=== PATIENT | male | born 1940 | race Caucasian/White ===

== ENCOUNTER 2016-08-28 21:41 | Inpatient (IN) | payer OTHER ==
[2016-08-28] MEDS ORDERED: NS 1,000 ML IV ONE (22:31)
[2016-08-28] MEDS ORDERED: DUONEB (A & A) INH ONE (22:34)
[2016-08-28 22:35] LABS: BASO% 0.1 % (0.0-0.8); EOS# 0.02 X1000 (0.0-0.7); EOS% 0.1 % (0.0-10.0); HEMOGLOBIN 11.3 g/dL (14.0-18.0); IMM GRAN# 0.11 X1000 (0.0-0.04); IMM GRAN% 0.5 % (0.0-0.5); LYMPH# 0.84 X1000 (1.2-3.4); LYMPH% 3.5 % (20.5-51.1); MANUAL DIFF NEEDED? NO; MCH 24.8 PG (27-31); MCV 85.7 FL (81-99); MONO# 0.62 X1000 (0.11-0.59); MONO% 2.6 % (1.7-9.3); MPV 10.2 FL (7.4-10.4); NEUT% 93.2 % (42.2-75.2); PLT 346 X1000 (130-400); RBC 4.55 XMIL (4.7-6.1)
[2016-08-28 22:40] LABS: CALCIUM 9.1 mg/dL (8.8-10.2); MAGNESIUM 2.1 mg/dL (1.5-2.7); POTASSIUM 4.6 mmol/L (3.5-5.1); TOTAL BILIRUBIN 0.58 mg/dL (0.20-1.00); TOTAL PROTEIN 6.9 g/dL (6.3-8.3)
[2016-08-28 22:42] LABS: INR 1.14; PROTIME 12.1 Seconds (9.2-11.7); PTT 30.9 Seconds (22.0-36.0)
[2016-08-28] MEDS ORDERED: DUONEB (A & A) ONE (22:49)
[2016-08-28] MEDS ORDERED: VANCOMYCIN 1 GM/NS 250 ML IV ONE (22:55)
[2016-08-28] MEDS ORDERED: ROCEPHIN 1 GM/NS 50 ML IV ONE (22:55)
[2016-08-28] MEDS ORDERED: MERREM 1 GM in NS 50 ML IV ONE (22:56)
--- NOTE | 2016-08-28 23:22 | PROVIDER DOCUMENTATION ---
Addendum entered and electronically signed by Melinda Hernandez Scribe 08/29/16 00: 55: EKG Interpretation - EKG Time of EKG reading by physician:: 21:50 EKG Read and Signed by:: Emmanuel Pineda EKG Interpretation (*Must complete 3 of following elements*): Abnormal Rate: 106 Rhythm: atrial fibrillation with RVR QRS: RBB Original Note: HPI-General Adult - General Chief Complaint: Possible Sepsis-D Stated Complaint: SOB, CANNOT URINATE Time Seen by Provider: 08/28/16 22:31 Source: patient Allergies/Adverse Reactions: Patient Allergies Allergy/AdvReac Type Severity Reaction Status Date / Time No Known Allergies Allergy Verified 08/28/16 23:35 Home Medications: Home Medication List Medication Instructions Recorded Confirmed Last Taken Type Donepezil [Aricept] 10 mg PO QHS 02/21/14 08/28/16 03/07/15 21:00 History PRAVAstatin [Pravachol] 80 mg PO QHS 02/21/14 08/28/16 03/07/15 21:00 History Amlodipine [Norvasc] 10 mg PO DAILY 08/05/16 08/28/16 Unknown History Carvedilol [Coreg] 25 mg PO BID 08/05/16 08/28/16 Unknown History Omeprazole 40 mg PO DAILY 08/05/16 08/28/16 Unknown History Hydrocodone/Acetaminophen [[place] 1 each PO TID PRN #10 tablet 08/21/16 08/28/16 Unknown Rx 7.5-325 Tablet] Oxybutynin [Ditropan] 5 mg PO TID PRN #20 tablet 08/21/16 08/28/16 Unknown Rx Aspirin 81 mg PO DAILY #0 08/25/16 08/28/16 08/09/16 Rx Ciprofloxacin [Cipro] 250 mg PO BID #6 tablet 08/25/16 08/28/16 Unknown Rx Rivaroxaban [Xarelto] 20 mg PO DAILY #0 08/25/16 08/28/16 08/09/16 Rx - History of Present Illness -Gen Adult Nature of Presenting Problems: Pt. is 75 yom that presents with c/o SOB and trouble urinating. Pt. reports one week ago he had his prostate removed. Pt. states that his last BM was yesterday and it was a good one. Pt. reports his surgery was done by Dr. Downing. Pt. reports his abd is swelling with pain and that it radiates into his right shoulder. Pt. denies any N/V but does report when he woke this morning he broke into a sweat. Location of Pain/Injury: reports: abdomen. denies: head, face, mouth, neck, chest, upper extremity, hand(s), back, pelvis, genitalia, lower extremity, feet , upper body, lower body, generalized Pain Radiation: reports: shoulder(s) (Right) Quality of Pain: reports: aching. denies: burning, cramping, dull, fullness, indigestion, pressure, sharp, stabbing, tearing, throbbing, tightness Severity: reports: severe. denies: mild, moderate Onset/Duration: reports: gradual, 2 days ago Timing: reports: still present, constant, changing over time, getting worse. denies: improving, gone now, resolved prior to arrival, intermittent Context/Activities at Onset: reports: none. denies: recent emotional stress, recent physical stress, recent trauma history, possible bad food, cold exposure , out of country travel Modifying Factors: improves with: nothing Associated Symptoms: reports: diaphoresis, genitourinary problems, shortness of breath. denies: anxiety, arm pain, back/neck pain, chest pain, constipation, cough, diarrhea, dizziness, EENT symptoms, fatigue, fever/chills, headaches, heartburn, joint pain, loss of appetite, malaise, muscle aches, sinus congestion /drainage, nausea, rash, seizure, sensory/motor loss, pain with inspiration, swelling/mass in abdomen, syncope, vomiting, weakness, trouble walking Similar Symptoms Previously?: Yes Recently seen or treated by another doctor?: No Review of Systems - Adult - REVIEW OF SYSTEMS - ADULT Constitutional: reports: see HPI. denies: chills, fever, fatique Eyes: reports: see HPI. denies: discharge, blurred vision, double vision Ears, Nose, Mouth & Throat: reports: see HPI. denies: ear pain, hearing loss, nose pain, loose teeth, mouth/dental pain, throat pain, throat swelling Cardiovascular: reports: see HPI. denies: chest pain, irregular heart rate, orthopnea, syncope Respiratory: reports: see HPI, dyspnea on exertion, shortness of breath, wheezing. denies: chronic cough, cough, pleurisy Gastrointestinal: reports: see HPI, abdominal pain. denies: difficulty swallowing, frequent heartburn, nausea, vomiting Genitourinary: reports: see HPI, urinary retention. denies: dysuria, discharge , flank pain, hematuria, hesitency Musculoskeletal: reports: see HPI. denies: bone pain, back pain, joint pain, joint swelling, muscle aches, neck pain Integumentary: reports: see HPI. denies: hives, hair loss, itching, rash, skin thickening Neurological: reports: see HPI. denies: ataxia, headache/migraines, numbness, seizure, tremors Psychiatric: reports: see HPI. denies: anxiety, depression, emotional problems , insomnia, panic attacks, suicidal thoughts Past History - Adult - PAST MEDICAL HISTORY-ADULT Review of Records: reports: Old Records Reviewed, Nursing Assessment Review, Medications Reviewed, Social history reviewed & non-contributory. Cardiovascular: reports: HTN Respiratory: reports: asthma - PRIOR SURGERIES/PROCEDURES Surgical/Procedure History: reports: bowel surgery (colectomy) - IMMUNIZATION STATUS Childhood Immunizations: See Nurse Assessment Flu Vaccine: See Nurse Assessment - FAMILY HISTORY Family History: reviewed, not pertinent - SOCIAL HISTORY Smoking: denies Physical Exam-General - PHYSICAL EXAM-ADULT Initial Vital Signs Reviewed: Yes - CONSTITUTIONAL General Appearance: alert, moderate distress, obese. negative: anxious, lethargic, slow to respond, obtunded, combative - EYES Eyes: PERRL/EOMI, pink conjunctivae. negative: conjuctival exudate, scleral icterus, subconjunctival hemorrhage - HEAD, EARS, NOSE, MOUTH & THROAT HENMT: normocephalic/atraumatic, moist mucous membranes. negative: angioedema, frontal tenderness, maxillary tenderness - NECK Neck: non-tender, full range of motion, supple, normal inspection. negative: lymphadenopathy, trachial deviation, thyromegaly - RESPIRATORY Respiratory: respiratory distress, wheezing, increased rate. negative: crackles , rales, rhonchi, stridor, plerual rub, retractions, splinting - CARDIOVASCULAR Cardiovascular: regular rate, rhythm, no edema, tachycardia. negative: extra beats, friction rub, irregularly irregular - CHEST (BREASTS) Chest/Breast: deferred - GASTROINTESTINAL (ABDOMEN) Abdominal Exam: normal bowel sounds, non tender, soft. negative: distended, guarding, rigid, rebound, tenderness, hernia, mass - GENITOURINARY Male Genitalia: deferred Rectal Exam: deferred Hemoccult Exam: deferred - LYMPHATIC Lymphatic: no adenopathy. negative: axilla node tender, cervical node tenderness - MUSCULOSKELETAL Back Exam: normal inspection, no CVA tenderness, no vertebral tenderness. negative: ecchymosis, swelling, vertebral tenderness Extremity: normal range of motion, non-tender, normal gait, pedal edema. negative: deformity, erythema, inflammation Peripheral Pulses: radial (R): 2+, radial (L): 2+ - SKIN Integumentary: normal turgor, warm/dry, ecchymosis (Various stages of healing on the abdomen where his surgery was performed.), pallor. negative: cyanosis, diaphoresis, erythema, jaundice, mottled, petechiae, purpura, rash, swelling, tenderness - NEUROLOGIC Neurologic: grossly normal, no motor/sensory deficits. negative: aphasia, facial droop, focal weakness, motor weakness, sensory deficit - PSYCHIATRIC Psych/Mental Status: normal mood/affect, normal thought content, normal thought process, oriented x 3. negative: anxious, paranoid, tearful Progress - PLAN OF CARE/RESULTS Progress/Plan/Lab Results: Dr. Pineda at bedside for evaluation. Discussed results and plan of care with patient. Patient agrees with plan and verbalizes understanding. Vital Signs Temp Pulse Resp BP Pulse Ox 08/28/16 22:16 112 H 31 H 79/50 92 L 08/28/16 21:44 98.1 F 85 20 120/56 86 L No Known Allergies Allergy (Verified 08/19/16 12:15) Donepezil [Aricept] 10 mg PO QHS 02/21/14 PRAVAstatin [Pravachol] 80 mg PO QHS 02/21/14 Amlodipine [Norvasc] 10 mg PO DAILY 08/05/16 Carvedilol [Coreg] 25 mg PO BID 08/05/16 Omeprazole 40 mg PO DAILY 08/05/16 Hydrocodone/Acetaminophen [[place] 7.5-325 Tablet] 1 each PO TID PRN #10 tablet Oxybutynin [Ditropan] 5 mg PO TID PRN #20 tablet 08/21/16 Aspirin 81 mg PO DAILY #0 08/25/16 Ciprofloxacin [Cipro] 250 mg PO BID #6 tablet 08/25/16 Rivaroxaban [Xarelto] 20 mg PO DAILY #0 08/25/16 Laboratory 08/28/16 08/28/16 08/28/16 23:00 22:10 22:10 WBC RBC Hgb Hct MCV MCH MCHC RDW Std Deviation Plt Count MPV Immature Gran % (Auto) Neut % (Auto) Lymph % (Auto) Summers % (Auto) Eos % (Auto) Baso % (Auto) Immature Gran # (Auto) Neut # (Auto) Lymph # (Auto) Summers # (Auto) Eos # (Auto) Baso # (Auto) PT 12.1 H INR 1.14 PTT (Actin FS) 30.9 D-Dimer Sodium Potassium Chloride Carbon Dioxide Anion Gap BUN Creatinine Estimated GFR/1.73 m2 BUN/Creatinine Ratio Glucose Calculated Osmolality Calcium Magnesium Total Bilirubin AST ALT Alkaline Phosphatase Creatine Kinase Troponin T < 0.010 Div-U-Ovqfbpkyswy Pept Total Protein Albumin Globulin Albumin/Globulin Ratio Plasma Lactate 1.6 08/28/16 08/28/16 08/28/16 22:10 22:10 22:10 WBC RBC Hgb Hct MCV MCH MCHC RDW Std Deviation Plt Count MPV Immature Gran % (Auto) Neut % (Auto) Lymph % (Auto) Summers % (Auto) Eos % (Auto) Baso % (Auto) Immature Gran # (Auto) Neut # (Auto) Lymph # (Auto) Summers # (Auto) Eos # (Auto) Baso # (Auto) PT INR PTT (Actin FS) D-Dimer 6.61 H Sodium 137 Potassium 4.6 Chloride 95 L Carbon Dioxide 28 Anion Gap 14 BUN 42 H Creatinine 2.2 H Estimated GFR/1.73 m2 29 BUN/Creatinine Ratio 19 Glucose 143 H Calculated Osmolality 287 Calcium 9.1 Magnesium 2.1 Total Bilirubin 0.58 AST 22 ALT 10 Alkaline Phosphatase 52 Creatine Kinase 158 Troponin T Deb-B-Kfyxrhuomxt Pept 3034 H Total Protein 6.9 Albumin 3.0 L Globulin 3.9 Albumin/Globulin Ratio 0.8 Plasma Lactate 08/28/16 22:10 WBC 24.29 H RBC 4.55 L Hgb 11.3 L Hct 39.0 L MCV 85.7 MCH 24.8 L MCHC 29.0 L RDW Std Deviation 19.2 H Plt Count 346 MPV 10.2 Immature Gran % (Auto) 0.5 Neut % (Auto) 93.2 H Lymph % (Auto) 3.5 L Summers % (Auto) 2.6 Eos % (Auto) 0.1 Baso % (Auto) 0.1 Immature Gran # (Auto) 0.11 H Neut # (Auto) 22.68 H Lymph # (Auto) 0.84 L Summers # (Auto) 0.62 H Eos # (Auto) 0.02 Baso # (Auto) 0.02 PT INR PTT (Actin FS) D-Dimer Sodium Potassium Chloride Carbon Dioxide Anion Gap BUN Creatinine Estimated GFR/1.73 m2 BUN/Creatinine Ratio Glucose Calculated Osmolality Calcium Magnesium Total Bilirubin AST ALT Alkaline Phosphatase Creatine Kinase Troponin T Xzq-X-Bgljwixopqs Pept Total Protein Albumin Globulin Albumin/Globulin Ratio Plasma Lactate Orders Category Date Time Status Cardiac Monitoring DIRECTED Care 08/28/16 21:57 Active Riavs Cath Insertion ORDERED Care 08/28/16 22:54 Active Notify MD of + Sepsis Screen NOW Care 08/28/16 22:51 Active Saline Loc NOW Care 08/28/16 21:57 Active ABDOMEN FLAT/UPRIGHT [RAD] Stat Exams 08/28/16 22:54 Ordered CHEST-PORTABLE [RAD] Stat Exams 08/28/16 21:59 Taken BLOOD CULTURE [BLDCUL] Stat Lab 08/28/16 23:00 Received CBC WITH ELECTRONIC DIFF [HEME] Stat Lab 08/28/16 22:10 Completed CK PROFILE [SP CHEM] Stat Lab 08/28/16 22:10 Completed COMPREHENSIVE METABOLIC PANEL [CHEM] Stat Lab 08/28/16 22:10 Completed D-DIMER [CHEM] Stat Lab 08/28/16 22:10 Completed LACTATE, PLASMA [CHEM] Stat Lab 08/28/16 23:00 Completed MAGNESIUM [CHEM] Stat Lab 08/28/16 22:10 Completed PRO B-NATRIURETIC PEPTIDE Stat Lab 08/28/16 22:10 Completed PROTIME WITH INR [COAG] Stat Lab 08/28/16 22:10 Completed PTT [COAG] Stat Lab 08/28/16 22:10 Completed TROPONIN T Stat Lab 08/28/16 22:10 Completed 0.9% Sodium Chloride Inj [Ns] 1,000 ml Med 08/28/16 22:31 Active IV 999 mls/hr Albuterol 2.5MG/Ipratrop 0.5MG [Duoneb (A & A)] Med 08/28/16 22:49 Discontinued 3 ml .ROUTE .STK-MED ONE Albuterol 2.5MG/Ipratrop 0.5MG [Duoneb (A & A)] Med 08/28/16 22:34 Discontinued 6 ml INH NOW ONE CefTRIAXONE 1 GM/NS [Rocephin 1 gm/Ns] 50 ml Med 08/28/16 22:55 Discontinued IV NOW Meropenem [Merrem] 1 gm Med 08/28/16 22:56 Discontinued 0.9% Sodium Chloride Inj [Ns] 50 ml IV NOW Vancomycin 1 gm/Ns 250 ml Med 08/28/16 22:55 Active IV NOW Aerosol Treatments Routine Oth 08/28/16 22:34 Active Aerosol Treatments Stat Oth 08/28/16 22:34 Active EKG [EKG] Stat Ther 08/28/16 21:43 Ordered Laboratory Tests 08/28/16 08/28/16 08/28/16 22:10 22:10 22:10 WBC 24.29 H RBC 4.55 L Hgb 11.3 L Hct 39.0 L MCV 85.7 MCH 24.8 L MCHC 29.0 L RDW Std Deviation 19.2 H Plt Count 346 MPV 10.2 Immature Gran % (Auto) 0.5 Neut % (Auto) 93.2 H Lymph % (Auto) 3.5 L Summers % (Auto) 2.6 Eos % (Auto) 0.1 Baso % (Auto) 0.1 Immature Gran # (Auto) 0.11 H Neut # (Auto) 22.68 H Lymph # (Auto) 0.84 L Summers # (Auto) 0.62 H Eos # (Auto) 0.02 Baso # (Auto) 0.02 PT INR PTT (Actin FS) D-Dimer 6.61 H Sodium 137 Potassium 4.6 Chloride 95 L Carbon Dioxide 28 Anion Gap 14 BUN 42 H Creatinine 2.2 H Estimated GFR/1.73 m2 29 BUN/Creatinine Ratio 19 Glucose 143 H Calculated Osmolality 287 Calcium 9.1 Magnesium 2.1 Total Bilirubin 0.58 AST 22 ALT 10 Alkaline Phosphatase 52 Creatine Kinase 158 Troponin T Yyw-J-Aivpijgiuzy Pept Total Protein 6.9 Albumin 3.0 L Globulin 3.9 Albumin/Globulin Ratio 0.8 Plasma Lactate 08/28/16 08/28/16 08/28/16 22:10 22:10 22:10 WBC RBC Hgb Hct MCV MCH MCHC RDW Std Deviation Plt Count MPV Immature Gran % (Auto) Neut % (Auto) Lymph % (Auto) Summers % (Auto) Eos % (Auto) Baso % (Auto) Immature Gran # (Auto) Neut # (Auto) Lymph # (Auto) Summers # (Auto) Eos # (Auto) Baso # (Auto) PT 12.1 H INR 1.14 PTT (Actin FS) 30.9 D-Dimer Sodium Potassium Chloride Carbon Dioxide Anion Gap BUN Creatinine Estimated GFR/1.73 m2 BUN/Creatinine Ratio Glucose Calculated Osmolality Calcium Magnesium Total Bilirubin AST ALT Alkaline Phosphatase Creatine Kinase Troponin T < 0.010 Vhm-S-Xdcpdvyvqec Pept 3034 H Total Protein Albumin Globulin Albumin/Globulin Ratio Plasma Lactate 08/28/16 23:00 WBC RBC Hgb Hct MCV MCH MCHC RDW Std Deviation Plt Count MPV Immature Gran % (Auto) Neut % (Auto) Lymph % (Auto) Summers % (Auto) Eos % (Auto) Baso % (Auto) Immature Gran # (Auto) Neut # (Auto) Lymph # (Auto) Summers # (Auto) Eos # (Auto) Baso # (Auto) PT INR PTT (Actin FS) D-Dimer Sodium Potassium Chloride Carbon Dioxide Anion Gap BUN Creatinine Estimated GFR/1.73 m2 BUN/Creatinine Ratio Glucose Calculated Osmolality Calcium Magnesium Total Bilirubin AST ALT Alkaline Phosphatase Creatine Kinase Troponin T Iwg-L-Ypxkpevxpvy Pept Total Protein Albumin Globulin Albumin/Globulin Ratio Plasma Lactate 1.6 Dr. Pineda wants to be conservative with fluids due to wheezing and elevated BNP. - XRAY 1 XRAY Study: Chest XRAY Interpretation: LLL Pneumonia ([place]) 2 XRAY Study: Abdomen XRAY Interpretation: Distended bowel loops and thickend bowel dill ([place]) - CONSULTS/PCP/HOSPITALIST Notification #1 *Consult/PCP/Hospitalist*: Dr. Roman Time Discussed: 00:06 Reason/Comments: Admission Consult Disposition: Will see in ED, Admit Departure - Departure Time of Disposition Order: 23:28 DIAGNOSIS: Pneumonia Qualifiers: Pneumonia type: due to unspecified organism Laterality: left Lung location: lower lobe of lung Qualified Code(s): J18.1 - Lobar pneumonia, unspecified organism Sepsis Qualifiers: Sepsis type: sepsis due to unspecified organism Qualified Code(s): A41.9 - Sepsis, unspecified organism Disposition: ADMITTED INPATIENT 09 Certified Medical Emergency: Emergent Condition: Serious Referrals: Afia Ovalles MD [Primary Care Provider] - Attestation - Physician/ JEROME Attestation Patient care was provided by Advanced Practice Provider:: Yes Advanced Practice Provider:: Rory Newton Advanced Practice Provider documentation review:: The Mid-level provider documentation, treatment plan and medical decision making was reviewed by the physician who agrees with all treatment and medical decision making by the MLP. The physician spent face to face time with patient:: Yes
[2016-08-29] MEDS ORDERED: NS 1,000 ML IV ONE (00:08)
[2016-08-29 00:32] LABS: URINE SOURCE CATH
[2016-08-29 00:43] LABS: BILIRUBIN URINE SMALL (NEGATIVE); BLOOD URINE LARGE (NEGATIVE); CLARITY CLEAR (CLEAR); COLOR YELLOW; GLUCOSE URINE NEGATIVE (NEGATIVE); LEUKOCYTES URINE TRACE (NEGATIVE); NITRITE URINE NEGATIVE (NEGATIVE); PROTEIN URINE 30 mg/dL (NEGATIVE); SP GRAVITY URINE >= 1.030; UROBILINOGEN URINE 0.2 EU/dL (0.2-1.0)
[2016-08-29 00:44] LABS: URINE CULTURE NEEDED? YES; URINE EPITHELIAL CELLS >10 /HPF (<10); URINE RBC TNTC /HPF (<10); URINE WBC TNTC /HPF (<10)
--- NOTE | 2016-08-29 04:41 | HISTORY AND PHYSICAL ---
CHIEF COMPLAINT: Shortness of breath. HISTORY OF PRESENTING ILLNESS: This is a 75-year-old male with a history of hypertension, hyperlipidemia, and atrial fibrillation, who underwent a recent prostatectomy about a week ago. He presents to the emergency department complaining of having shortness of breath for the past several days. He states that he was coughing and had some chills. He was seen in the emergency room here and had imaging done, which did show that he had a left lower lobe infiltrate. Due to his presenting symptoms, he would need hospitalization for further management. During his initial evaluation in the ER, he was also hypotensive and he was given IV fluids. His blood pressure seemed to somewhat improve. At the time of my examination, he had denied having any headache, nausea, vomiting, diarrhea, chest pain, hemoptysis, melena, any weight changes, complaint shortness of breath, and not feeling well. PAST MEDICAL HISTORY: Includes hypertension, hyperlipidemia, and atrial fibrillation. PAST SURGICAL HISTORY: Prostatectomy, colectomy, bilateral knee replacement, appendectomy, and left carotid endarterectomy. ALLERGIES: No known drug allergies. CURRENT MEDICATIONS: Listed in MAR. SOCIAL HISTORY: He denies any history of smoking, alcohol, or illicit drug use. FAMILY HISTORY: No history of coronary disease. REVIEW OF SYSTEMS: Twelve point review of systems as in history of present illness. Other systems negative. PHYSICAL EXAMINATION: GENERAL: Cooperative, friendly male. He is resting more comfortably now. VITAL SIGNS: Temperature 98.1 degrees, pulse 85, respirations 20, blood pressure 120/56, saturating at 86%. HEENT: Atraumatic, normocephalic. Extraocular movements intact. Pupils equal, round, and reactive to light and accommodation. NECK: No masses. CHEST: Bibasilar rales. CARDIOVASCULAR: Regular rate and rhythm. ABDOMEN: Soft. Positive bowel sounds. EXTREMITIES: +1 edema. NEURO: He is awake, alert, oriented x3. GENITOURINARY: No bladder distention. SKIN: Warm. LABORATORIES AND STUDIES: WBCs 24.29, hemoglobin 11.3, hematocrit 39.0, platelets 346,000. D- dimer 6.61. Sodium 137, potassium 4.6, chloride 95, CO2 28, BUN is 42, creatinine is 2.2, glucose 143. Pro-BNP is 3334. ASSESSMENT: This is a 75-year-old male with a history of hypertension, hyperlipidemia, and atrial fibrillation, who presented to the emergency department with worsening cough and shortness of breath for the past several days. He is found to have infiltrates on the left lower lobe/ also he was presenting with hypotension. He was given IV fluids. The patient will need hospitalization for further management. 1. Pneumonia. 2. Suspected sepsis. 3. Hypotension. 4. Atrial fibrillation. 5. Probable Congestive heart failure. 6. Increase in D-dimer probably secondary to recent surgery. 7. Chronic kidney disease. PLAN: 1. We will admit patient to ICU. 2. We will check blood cultures. Start patient on IV antibiotics. 3. Continue with IV fluid. If there is no improvement, will consider starting the patient on Levophed. 4. We will hold off on his anticoagulation for now and have Cardiology evaluate him for his congestive heart failure and atrial fibrillation. 5. We will consider V/Q scan if he is not improving. 6. Monitor renal function. 7. We will put the patient on deep venous thrombosis prophylaxis with SCD. 8. We will continue to follow and reassess.
--- NOTE | 2016-08-29 06:00 | EKG Report ---
Test Performed on : 08/28/2016 9:50:15 PM Test Reason : SOB Blood Pressure : / mmHG Vent. Rate : 106 BPM Atrial Rate : 101 BPM P-R Int : 000 ms QRS Dur : 144 ms QT Int : 366 ms P-R-T Axes : 000 135 033 degrees QTc Int : 486 ms Atrial fibrillation. with rapid ventricular response. Right bundle branch block Abnormal ECG When compared with ECG of 08-MAR-2015 14:37, Previous ECG has undetermined rhythm, needs review Unconfirmed Result
[2016-08-29] MEDS ORDERED: ROCEPHIN 1 GM/NS 50 ML IV SCH (08:18)
[2016-08-29] MEDS ORDERED: LEVAQUIN 750 MG/D5W 150 ML IV SCH (08:18)
--- NOTE | 2016-08-29 08:20 | Diag Imaging Result Document ---
PROCEDURE NAME: CHEST-PORTABLE - 08/28/2016 AP PORTABLE CHEST AT 2210 HOURS: FINDINGS: There is elevation of the left hemidiaphragm. There is cardiomegaly. There are no previous studies available for comparison. IMPRESSION: Possible atelectasis in the left base. Cardiomegaly.
--- NOTE | 2016-08-29 08:24 | Diag Imaging Result Document ---
PROCEDURE NAME: ABDOMEN FLAT/UPRIGHT - 08/28/2016 FLAT AND UPRIGHT ABDOMEN, PORTABLE: FINDINGS: There are markedly distended small bowel loops in the mid and left abdomen. The stomach is not particularly distended. There is a paucity of colonic gas. IMPRESSION: Small bowel obstruction.
[2016-08-29] MEDS: DUONEB (A & A) INH SCH ×4 (10:46→23:25)
--- NOTE | 2016-08-29 10:47 | CONSULTATION ---
DATE OF CONSULTATION: 08/29/2016 HISTORY: The patient is a 75-year-old gentleman who has chronic atrial fibrillation who also has had recent prostatectomy about a week back. He came to the emergency room with increasing shortness of breath associated with cough and mucopurulent expectoration with chills. For the last couple of days, he has noted increasing abdominal distention with significant abdominal discomfort. He does not complain of having nausea or vomiting; however, he has not had a bowel movement in the last couple of days. He denies chest pain. There is no orthopnea. There are no palpitations. There is no syncope. REVIEW OF SYSTEMS: A 14-point review of systems was done. GI System: As above. System: There is no dysuria. Central Nervous System: No focal weakness to suggest a CVA or TIA. Endocrine System stable. PAST MEDICAL AND SURGICAL HISTORY: 1. Hypertension. 2. Chronic atrial fibrillation. 3. Hyperlipidemia. 4. Status post carotid endarterectomy. 5. Peripheral vascular disease. 6. History of GI bleed on 03/08/2015. 7. Gastroesophageal reflux disease. 8. Colectomy. 9. Bilateral knee surgery. 10. Appendectomy. 11. Recent prostatectomy. ALLERGIES: He is not known to be allergic to any medications. HOME MEDICATIONS: 1. Pravastatin 80. 2. Aricept 10. 3. Amlodipine 10. 4. Omeprazole 40. 5. Coreg 25 b.i.d. 6. Xarelto 20. 7. Aspirin. 8. He was on ciprofloxacin. SOCIAL HISTORY: He does not smoke. There is no history of alcohol abuse. PHYSICAL EXAMINATION: Vital Signs: Blood pressure when he came to the hospital was 120/50. It is 94/70 at the present time. Cardiovascular System: Jugular venous pressure was normal. 1st and 2nd heart sounds were heard. There is no S3 gallop. Respiratory System: Bilateral expiratory wheeze. Abdomen: Distended. High-pitched tinkling bowel sounds were noted. Central nervous system: Alert and oriented and was moving all 4 extremities. Extremities: Examination of extremities revealed trace edema. HEENT: Atraumatic, normocephalic. Pupils were equal and reacting to light. LABORATORY EXAMINATION: WBC 24.29, hemoglobin 11.3, hematocrit 39, platelet 346 ,000. D-dimer 6.61. Sodium 137, potassium 4.6, sodium 95. BUN 42, creatinine 2.2. ASSESSMENT AND PLAN: Mr. Jose Manuel Thurston is a 75-year-old gentleman with history of hypertension, atrial fibrillation, hyperlipidemia. He recently underwent prostatectomy. He is admitted with increasing shortness of breath with chills, and mucoid-to- mucopurulent expectoration. In addition, the patient has noted significant abdominal discomfort with worsening distention recently. From a cardiac standpoint 1. He is in atrial fibrillation. He has had chronic atrial fibrillation. He is anticoagulated with Xarelto. We will decrease the dose of Xarelto given his worsening renal function.Prior creatinine was 1.0. Will consult nephrology 2. We will get an echocardiogram to assess cardiac and valvular function. 3. His main problems have been that he has had cough with mucopurulent expectoration. 4. Elevated white counts. Blood cultures are pending. 5. He has a respiratory tract infection as well. We will repeat chest x-ray in the morning. 6. He has abdominal discomfort with distention and chest x-ray and abdominal x- ray suggestive of small bowel obstruction. We will consult General Surgery as a combination of respiratory tract infection or small bowel obstruction may be the etiology of his symptomatology. In the interim, we will keep him n.p.o. until surgery sees him. 7. For infection, he is on antibiotics. Blood cultures are pending. 8. He has had a prostatectomy. He does not complain of any bleeding in his urine. 9. His blood pressures are low. His beta-blockers have been held. He is on IV fluids. Recommend continuing his current medications. Thank you for the consult. We will follow hospital course. [facility] MEDICAL CENTERJonah
[2016-08-29] MEDS: PRILOSEC PO SCH (11:21)
--- NOTE | 2016-08-29 13:32 | Diag Imaging Result Document ---
PROCEDURE NAME: ABDOMEN/PELVIS W/O CONTRAST - 08/29/2016 CT ABDOMEN AND PELVIS WITHOUT CONTRAST: No contrast administered per request of the referring provider. FINDINGS: There is distention of proximal small bowel up to 3.7 cm. The possibility of early or partial small bowel obstruction cannot be excluded. There is possible transition to normal caliber small bowel at the right lower quadrant. There is no specific obstructing lesion identified. There is no bowel-containing hernia identified. There is extensive diverticulosis on the left colon from the splenic flexure to the distal sigmoid. There is no diverticulitis identified. There appears to have been partial colectomy at the proximal right colon. The distal small bowel proximal to the right colon surgery is not dilated. There is a small amount of free fluid in the abdomen and pelvis. There is no free air identified. There is no abscess identified. There is dependent atelectasis of the bilateral lung bases. There are no substantial abnormalities of the liver, spleen, or pancreas, other than mild pancreatic atrophic changes, identified. There is nonspecific mild fullness of the bilateral adrenal glands. The gallbladder is surgically absent. There is no evidence of renal stone or hydronephrosis. There are low density lesions suggestive of cysts arising at the lower right kidney. There is a mildly prominent left common iliac lymph node. There are atherosclerotic calcifications noted. There are lumbar spine degenerative changes noted. There is a Rivas catheter in the urinary bladder. IMPRESSION: 1. Distended proximal small bowel with apparent transition to normal caliber at the right lower quadrant. The possibility of early or partial small bowel obstruction cannot be excluded. There is no discrete obstructing lesion identified. 2. Uncomplicated colonic diverticulosis. 3. Small amount of free fluid. No free air. No abscess. 4. Nonspecific mild fullness of bilateral adrenal glands. Mildly prominent left common iliac lymph node. 5. Low-density lesions suggestive of cysts at lower right kidney. Follow-up renal ultrasound could be considered.
--- NOTE | 2016-08-29 13:44 | CONSULTATION ---
DATE OF CONSULTATION: 08/29/2016 REASON FOR CONSULTATION: Acute kidney injury. HISTORY OF PRESENT ILLNESS: Mr. Thurston is a 75-year-old white male with a history of atrial fibrillation, hyperlipidemia, hypertension. He had a right hemicolectomy in the past for colon cancer. No adjuvant treatment was required. He had a recent robotic prostatectomy performed by Dr. Edmond on 08/21/2016. He states that after discharge home he has had a few episodes of vomiting, abdominal distention has been present and he has also had problems with no bowel movements. It has been several days since he has had any bowel movement. Very poor p.o. intake. He has had some chills as well as coughing at home. He does not feel like he is significantly short of breath right now. He blames any respiratory symptoms on abdominal pain. No chills or fever currently. He has never had kidney disease as far as he is aware. Because of these worsening symptoms, he sought attention in the emergency room and was admitted. His initial evaluation disclosed hypotension with his lowest recorded blood pressure being 79/50. He has been treated with IV fluids with progressive improvement in his blood pressure and his urine output is starting to increased. Rivas catheter is still in place from his surgery. PAST MEDICAL HISTORY: As above. He also has hypertension and hyperlipidemia. HOME MEDICATIONS: Include pravastatin, donepezil, amlodipine, omeprazole, carvedilol, hydrocodone, oxybutynin, rivaroxaban, ciprofloxacin, aspirin. ALLERGIES: None. SOCIAL HISTORY: No alcohol or tobacco. FAMILY HISTORY: Noncontributory. REVIEW OF SYSTEMS: Is only positive as above. PHYSICAL EXAMINATION: Vital Signs: Blood pressure 94/70, heart rate 103, respiration 18, afebrile. He was seen in CT. Skin: Warm and dry. HEENT: Conjunctivae are pink. Pupils are equal. Oropharynx is dry. Tongue is midline. Neck: Supple. Trachea is midline. No jugular venous distention. Heart: Regular with mild tachycardia. No gallops. Lungs: Have equal breath sounds. No crackles or wheezes. Some increased respiratory rate. No retractions. Abdomen: Distended and soft and diffusely tender but no guarding or rebound. Bowel sounds are not appreciated. Extremities: Have 1+ edema. No clubbing or cyanosis. Neurologic Exam: Grossly nonfocal. LABORATORY DATA: Sodium 137, potassium 4.6, chloride 95, bicarbonate 28, BUN 42, creatinine 2.2. Hemoglobin 11.3. IMPRESSION: 1. Acute kidney injury. Increased BUN to creatinine ratio. Hypotension, poor intake all support prerenal azotemia. He has received at least 2 L of bolus of normal saline and he is now receiving normal saline at 100 mL/h. He is on no medicines that would be deemed to be nephrotoxic. His etodolac has been discontinued. I agree with your care thus far. I will check urine electrolytes and urine protein etc. Continue his IV fluids as ordered and we will reassess his kidney function in the morning.
[2016-08-29] MEDS ORDERED: VANCOMYCIN IV PER PHARMACY MISC SCH ×2 (14:00)
--- NOTE | 2016-08-29 14:24 | PROGRESS NOTE ---
DATE: 08/29/2016 SUBJECTIVE: The patient is in severe distress due to abdominal discomfort. When I saw him he started vomiting. OBJECTIVE: Vital signs: Blood pressure 94/70, pulse of 79, respiration 28, temperature of 99.0, saturation 95% on room air. General appearance: Obese white male, in moderate distress. HEENT: Anicteric. Clear conjunctivae. Neck: Supple. No JVD. No bruit. Cardiovascular: S1, S2, normal rate and rhythm. No murmur, rubs, or gallops. Pulmonary: Clear to auscultation bilaterally. GI: Distended. Very hypoactive bowel sounds. Tender to palpation. Extremities: No clubbing, cyanosis, or edema. LABORATORY: Reviewed. ASSESSMENT AND PLAN: A 75-year-old admitted to the hospital for shortness of breath. 1. Shortness of breath most likely due to abdominal distention compression on his diaphragm. But it can also be due to atelectasis. There is no evidence of infection from the lung from the chest x-ray. We will discontinue Levaquin and Rocephin for now. 2. Abdominal pain and distention with recent surgery with a radical prostatectomy through the abdomen concerning for obstructions or even perforation. The patient is hypotensive, may be due to dehydration however we cannot rule out sepsis. We will put the patient on Zosyn and vancomycin for sepsis. Blood cultures are still pending. We will admit the patient to the ICU. We will continue IV fluid. We will hold all of his blood pressure medication because of hypotension. 3. Atrial fibrillation. We will resume the patient on his Xarelto. We will get echocardiogram. Total critical care time on this patient is 35 minutes in addition to the admission this morning.
[2016-08-29] MEDS: ZOSYN 3.375 GM/NS 50 ML IV SCH ×2 (14:38→22:05)
--- NOTE | 2016-08-29 14:55 | Diag Imaging Result Document ---
PROCEDURE NAME: CHEST/ABD TUBE PLACEMENT - 08/29/2016 PORTABLE EXAMINATION FOR NASOGASTRIC TUBE PLACEMENT: TIME: 1418 hours. FINDINGS: The tip of the nasogastric tube is at the expected location in the gastroesophageal junction. The tube should be advanced several centimeters for more optimal positioning. Verbal results provided to nurse Diaz at 2:31 p.m. on August 29, 2016.
--- NOTE | 2016-08-29 16:17 | CONSULTATION ---
DATE OF CONSULTATION: 08/29/2016 Mr. Jose Manuel Thurston is a 75-year-old white male, who is a patient of Dr. Ovalles. He is postop day 9 from a robotic prostatectomy per Dr. Edmond. Initially after surgery he seemed to be doing well and had already seen Dr. Edmond as an outpatient and his Rivas catheter tube has been removed. However 2 days prior to his presentation on Thursday he began to experience some abdominal distention. He did not have his normal bowel movement. On he had significant lower abdominal pain prompting him to present to our emergency department later in the day because of this pain. It did require pain medication. He also had nausea and vomiting. He has been hospitalized in the ER overnight and now is in the ICU and we were asked to evaluate him for possible small bowel obstruction nine days status post robotic prostatectomy. PAST SURGICAL HISTORY: Right colon resection for cancer, cholecystectomy, bilateral knee replacement, appendectomy, left carotid endarterectomy. PAST MEDICAL HISTORY: Hypertension, hyperlipidemia and atrial fibrillation. ALLERGIES: No known drug allergies. MEDICATIONS: Pravastatin, donepezil, amlodipine, omeprazole, carvedilol, hydrocodone, oxybutynin, rivaroxaban, Cipro, aspirin. ALLERGIES: No known drug allergies. SOCIAL HISTORY: He is a retired [employer] truck driver. His is also retired and at the bedside. He does not smoke. FAMILY HISTORY: He has colon cancer in his family. REVIEW OF SYSTEMS: A 14-point review of systems was performed and except for the history of present illness was essentially negative. PHYSICAL EXAMINATION: General: Mr. Thurston is in our ICU bed 6. He is awake, cooperative. Has an NG tube in place. Abdomen obviously tightly distended. Rivas catheter tube is in place. He has no jaundice. No oral lesions. No cervical or supraclavicular lymphadenopathy. Heart: Has an irregular rate. Lungs: Have wheezes. Abdomen: Is tightly distended. It does not appear that he has an acute abdomen. He has well-healing trocar scars and a limited lower midline incision. He has no evidence of hernia. He had no costovertebral tenderness. Rectal Exam: Was not performed. Extremities: He does have palpable femoral pulses. He has mild peripheral edema. Neurological: He has no focal deficit. His creatinine is 2.2. He is not acidotic. His white blood cell count is 24. CT scan suggested dilated small bowel proximally. Some small amount of fluid in the pelvis. No evidence of abscess. No free air. IMPRESSION: Abdominal distention postop day 9 status post robotic prostatectomy with a CT scan that documents small bowel distention. He has an elevated white blood cell count. PLAN: He has got NG tube suction and he is receiving IV antibiotics and fluid resuscitation. He does not have an acute abdomen and we will follow along clinically to see if his abdominal distention improves with supportive treatment.
--- NOTE | 2016-08-29 16:36 | CONSULTATION ---
DATE OF CONSULTATION: 08/29/2016 CONSULTING PHYSICIAN: Hospitalist team. REASON FOR CONSULTATION: Recent surgery. HISTORY OF PRESENT ILLNESS: A 75-year-old male who recently underwent robotic assisted laparoscopic prostatectomy with bilateral pelvic lymph node dissection, urethral suspension and laparoscopic lysis of adhesions. He was discharged home on postop day 1 in good condition. He was seen by me in clinic 6 days later, where his pathology was reviewed and his Rivas catheter was removed. His stated that the patient was doing well until a day prior to presentation where he developed decreasing urinary output, abdominal distention, nausea and shortness of breath. He contacted me on 08/28/2016 in the evening time and I advised him to go to the emergency room. He was seen there, was evaluated and was admitted with pneumonia, acute kidney injury, concern for bowel obstruction. Again of note, he did have a previous colon resection and underwent laparoscopic lysis of adhesion. Intraoperatively there was no evidence of bowel injury. Upon admission he had CT abdomen and pelvis performed which revealed distended small bowel with report of possible early or partial small-bowel obstruction. The patient had Rivas catheter placed as well as an NG tube and he currently reports feeling better. He reports irritation from the catheter but otherwise denies significant abdominal pain, flank pain, fevers or chills. PAST MEDICAL HISTORY: 1. Prostate cancer. 2. Hypertension. 3. Hyperlipidemia. 4. Atrial fibrillation. PAST SURGICAL HISTORY: Appendectomy, partial colectomy, bilateral knee arthroplasty, carotid endarterectomy, prostatectomy with pelvic lymph node dissection, lysis of adhesions as above. ALLERGIES: No known drug allergies. HOME MEDICATIONS: Xarelto, pravastatin, pantoprazole, Norvasc, donepezil, carvedilol, and aspirin. FAMILY HISTORY: Negative for malignancies, positive for breast cancer, diabetes, and lung cancer. SOCIAL HISTORY: He denies tobacco, alcohol or drug use. REVIEW OF SYSTEMS: Was reviewed and 12 systems negative except as mentioned in HPI. PHYSICAL EXAMINATION: Temperature 99.0 degrees, pulse is 105, blood pressure is 111/81.General: Pleasant male in no apparent distress. HEENT: Was normocephalic, atraumatic. He was tachycardic but I did not appreciate abnormal rhythm at the time of examination. Pulmonary: Bilateral breath sounds which were coarse. Abdomen: Appropriately tender to palpation, no significant distention, no drainage noted from the robotic incision sites. : Testes are nontender to palpation, normal phallus, Rivas catheter in place draining straw-colored urine. Lymphatic: No inguinal lymphadenopathy. Dermatologic: No obvious skin rashes. Neurologic: Alert and oriented x3. Psychiatric: Appropriate mood and affect. PERTINENT LABS: White cell count of 24,000, creatinine of 2.2. His urinalysis was positive for blood and bacteria as well as multiple epithelial cells. PERTINENT IMAGES: CT abdomen and pelvis as per HPI. ASSESSMENT: A 75-year-old male with a recent history of prostatectomy with pelvic lymph node dissection and laparoscopic lysis of adhesions who has shortness of breath and abdominal pain with concern for partial bowel obstruction. His Rivas is draining well. He reports his abdominal distention discomfort has improved after NG tube has been placed. We discussed conservative urologic care at this point. PLAN: 1. Continue Rivas catheter for now. 2. Will follow. 3. When patient is more comfortable we will remove Rivas catheter.
[2016-08-29] MEDS ORDERED: VANCOMYCIN 2,000 MG in NS 500 ML IV SCH (17:00)
--- NOTE | 2016-08-29 17:58 | ECHO REPORT ---
ORDER DATE: 08/29/2016 INTERPRETING PHYSICIAN: Dr. Campbell REQUESTING PHYSICIAN: CLINICAL INDICATIONS: A 75-year-old male with dyspnea, atrial fibrillation. M-MODE MEASUREMENTS: Right ventricle: 2.7 cm. Left ventricle end diastole: 5.5 cm. Left ventricle end systole: 4.2 cm. Posterior wall: 0.8 cm. Interventricular septum: 0.7 cm. Left atrium: 4.9 cm. Aortic root: 3.8 cm. SUMMARY OF 2-DIMENSIONAL IMAGING: The left ventricular function is normal. Ejection fraction estimated at 55-60%. This study is technically very limited. Apical windows are very poor. The patient is in atrial fibrillation with variable ventricular rate that goes anywhere from 90- 120. The pulmonic valve appears to be grossly normal. Color flow mapping unremarkable. The mitral valve shows trace regurgitation. Pulse wave Doppler of mitral inflow shows a single filling wave. The aortic valve shows sclerosis of the cusps. There is no stenosis. There is no regurgitation. The tricuspid valve shows a mild to moderate degree of regurgitation with a pulmonary pressure estimated to be somewhere in the range of 43-48 mmHg. No definite pericardial effusion is noted. The left atrium is probably moderately enlarged. Clinical correlation recommended. Consider repeating the study when the patient is really in a more stable general condition.
[2016-08-29] MEDS: NS 1,000 ML IV SCH ×3 (19:03→22:05)
[2016-08-29] MEDS ORDERED: ZOFRAN IV PRN (20:07)
[2016-08-29] MEDS: PRAVACHOL PO SCH (20:40)
[2016-08-29] MEDS: ARICEPT PO SCH (20:40)
[2016-08-30] MEDS: DUONEB (A & A) INH SCH ×6 (02:57→23:10)
[2016-08-30] MEDS: ZOSYN 3.375 GM/NS 50 ML IV SCH (05:42)
[2016-08-30 07:07] LABS: BASO% 0.1 % (0.0-0.8); EOS# 0.33 X1000 (0.0-0.7); EOS% 2.6 % (0.0-10.0); HEMATOCRIT 37.7 % (42.0-52.0); HEMOGLOBIN 10.7 g/dL (14.0-18.0); IMM GRAN# 0.04 X1000 (0.0-0.04); IMM GRAN% 0.3 % (0.0-0.5); LYMPH# 0.63 X1000 (1.2-3.4); LYMPH% 4.9 % (20.5-51.1); MANUAL DIFF NEEDED? YES; MCH 24.5 PG (27-31); MCHC 28.4 g/dL (33-37); MCV 86.3 FL (81-99); MONO# 0.46 X1000 (0.11-0.59); MONO% 3.6 % (1.7-9.3); MPV 10.1 FL (7.4-10.4); NEUT% 88.5 % (42.2-75.2); PLT 284 X1000 (130-400); RBC 4.37 XMIL (4.7-6.1)
[2016-08-30 07:23] LABS: AGAP 10; ALBUMIN 2.4 g/dL (3.5-5.0); BUN 29 mg/dL (8-22); CALCIUM 8.3 mg/dL (8.8-10.2); CHLORIDE 103 mmol/L (98-107); COSMO 289; POTASSIUM 3.9 mmol/L (3.5-5.1); SODIUM 142 mmol/L (136-145); TCO2 29 mmol/L (25-35)
[2016-08-30 08:13] LABS: BANDS 8 % (0-1); EOS 2 % (1-10); HYPOCHROM 1+; LYMPHS 8 % (21-51); MONO 2 % (1-9)
--- NOTE | 2016-08-30 08:26 | PROGRESS NOTE ---
DATE: 08/30/2016 SUBJECTIVE: Mr. Thurston is approximately postop day 10 from a robotic-assisted prostatectomy per Dr. Edmond. He is a 75-year-old white male. He did well the first 5 days after surgery, but then had increasing abdominal distention with lower abdominal pain with nausea and vomiting, was admitted through the emergency department and is now in our ICU and he is hospital day 2. Clinically, he feels that he has improved over the last 24 hours. OBJECTIVE: His heart rate is 96-113. Blood pressure 108/68. O2 saturation 95%. He has no wheezing. Mild shortness of breath. Respiratory therapy is seeing him. He is afebrile. He is on IV antibiotics because of an elevated white blood cell count. His white blood cell count was 24 yesterday. It is 13 this morning. His hematocrit is 36 8%. He has a good urine output and his BUN and creatinine have improved with IV hydration. His BUN and creatinine yesterday were 42 and 2.2 and this morning, they are 29 and 1.0. He has an NG tube in. His abdomen remains distended, but I think that it is less distended than yesterday. He has drained 900 mL of NG tube drainage since I saw arm. That is probably overnight over the last 12 hours. He does not have an acute abdomen. He has mildly tender throughout. His trocar sites and small lower midline incision seems to be healing well. He has no hernia. He is awake and cooperative. PLAN: We will continue IV hydration and antibiotics. NG tube suction. We will increase his activity today and follow him clinically.
--- NOTE | 2016-08-30 08:47 | Diag Imaging Result Document ---
PROCEDURE NAME: CHEST-PORTABLE - 08/30/2016 PORTABLE CHEST: COMPARISON: 08/28/2016. FINDINGS: There is a nasogastric tube present. The tip of the nasogastric tube is indistinct due to technical factors. The nasogastric tube appears to extend to at least the proximal stomach. There is stable cardiomegaly. Inspiration is mildly shallow. There is mild atelectasis at the left base. The remainder of the lungs appear essentially clear. There is no pleural effusion or pneumothorax identified. IMPRESSION: Mildly shallow inspiration with mild left basilar atelectasis. Stable cardiomegaly.
[2016-08-30] MEDS ORDERED: XARELTO PO SCH ×2 (09:00)
[2016-08-30] MEDS: ASPIRIN PO SCH (10:05)
[2016-08-30] MEDS: PRILOSEC PO SCH (10:06)
[2016-08-30] MEDS ORDERED: NORCO-7.5 PO PRN (10:47)
[2016-08-30] MEDS ORDERED: DITROPAN PO PRN (10:47)
--- NOTE | 2016-08-30 12:15 | PROGRESS NOTE ---
DATE: 08/30/2016 SUBJECTIVE: The patient is feeling much better today. He is sitting up in the chair. Has NG tube to suction. Is comfortable. No complaint. OBJECTIVE: Vital Signs: Blood pressure 106/68, pulse 101, respirations 22, temperature 98.5 degrees, and saturation of 95% on 3L nasal cannula. General Appearance: Obese white male in no acute distress. HEENT: Anicteric. NG tube in place. Neck: Supple. No JVD. No bruits. Cardiovascular: S1 and S2. Normal rate and rhythm. No murmur, rubs, or gallops. Pulmonary: Clear to auscultation bilaterally. Gastrointestinal: Soft, nontender, nondistended. He has good bowel sounds on the right side, but none on the left. Musculoskeletal: No clubbing, cyanosis, or edema. LABORATORIES: White count 12.93, hemoglobin 10.7, hematocrit of 37.7, platelets of 284,000. Chemistry: Sodium 142, potassium 3.9, chloride 103, bicarbonate 29, BUN 29, creatinine 1.0, glucose 92. ASSESSMENT AND PLAN: This is a 75-year-old white male, admitted to the hospital for abdominal discomfort and shortness of breath. 1. Abdominal discomfort. The patient has early obstruction or partial small-bowel obstruction. He is feeling much better with the nasogastric tube in place. Cause is probably due to recent surgery with radical prostatectomy. The patient continues to improve. We will continue nasogastric tube to wall low wall suction. We are transferring the patient to the floor. Surgery is following. The CAT scan did not show any evidence of abscess and we stopped the antibiotics. He has leukocytosis probably secondary to acute illness causing demargination, but his white count has normalized and no fever. 2. Shortness of breath, probably secondary to abdominal distention pushing on his diaphragm, that has since resolved. 3. Atrial fibrillation. The patient is still on Xarelto. Echocardiogram is pending. I will put the patient back on a low dose of Coreg for rate control. He is on 25 normally, but will put him back on 6.25. He should be able to tolerate it. 4. Deep vein thrombosis prophylaxis. The patient is on Xarelto. CODE STATUS: The patient is a full code. Will transfer the patient to the floor today.
--- NOTE | 2016-08-30 12:25 | PROGRESS NOTE ---
DATE: 08/30/2016 CHIEF COMPLAINT: Abdominal distension, irregular heartbeat. SUBJECTIVE: Mr. Thurston feels generally better. He is very talkative. He is sitting upright in a chair. He has an NG tube connected to suction. His abdomen is still cleaner and distended. He denies having chest pain. He has some slight wheezes when listening to his chest. OBJECTIVE: Vital signs: His blood pressure today is 108/68, temperature 98.5, pulse fluctuates from 90-110. General: He is awake, sitting upright. HEENT: Unremarkable. Chest: Diminished breath sounds with occasional end-expiratory wheezing. Cardiac: Heart sounds are irregularly irregular, no gallop or murmur. Abdomen: Distended, tympanitic, and tender diffusely. I cannot feel any hepatomegaly. The abdomen is too distended. Extremities: Trace ankle edema. Neurological: Moves four extremities, follows commands. BLOOD WORK: White count is down to 12,930. Bands are 8%. Sodium 142, potassium 3.9, BUN 29, creatinine 1.0, chloride 103. His phosphorus is 2.3. Albumin is 2.4. IMPRESSION: 1. Patient who has chronic atrial fibrillation, ventricular response is variable. 2. Bowel obstruction. He is on NG tube suction. He has abdominal distension. 3. Status post recent prostatectomy. 4. History of previous resection of the colon for colon cancer. 5. History of hypertension and history of hyperlipidemia. RECOMMENDATION: From cardiology viewpoint, I would continue rate control with diltiazem and digoxin as needed. As far as prevention of stroke, I think at this point in time that is a low priority. If there is indication of bleeding, all anticoagulants should be discontinued. His echocardiogram done yesterday showed ejection fraction of 55% to 60%. The study was technically very limited. Cardiac-lr, I think he is stable. We will follow him along, and thank you for the opportunity to participate in his evaluation.
[2016-08-30] MEDS: NS 1,000 ML IV SCH ×2 (12:56→23:48)
[2016-08-30] MEDS: COREG PO SCH ×2 (12:58→20:16)
--- NOTE | 2016-08-30 19:39 | Diag Imaging Result Document ---
PROCEDURE NAME: HEAD W/O CONTRAST - 08/30/2016 CT BRAIN WITHOUT CONTRAST. DOSE REDUCTION PROTOCOL: FINDINGS: No parenchymal hemorrhage. No epidural or subdural hematoma. No subarachnoid hemorrhage. There are chronic microvascular ischemic changes. Old left cerebellar infarct. No hydrocephalus. No mass identified on this noncontrasted exam. No sinus opacification. IMPRESSION: 1. No hemorrhage. 2. 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 A preliminary report was given at 6:20 p.m.
[2016-08-30] MEDS: ARICEPT PO SCH (20:16)
[2016-08-30] MEDS: PRAVACHOL PO SCH (20:16)
[2016-08-30 21:26] LABS: URINE MICRO REVIEW NEEDED? NO; URINE SOURCE CATH
[2016-08-30 21:29] LABS: BILIRUBIN URINE NEGATIVE (NEGATIVE); BLOOD URINE MODERATE (NEGATIVE); COLOR YELLOW; GLUCOSE URINE NEGATIVE (NEGATIVE); LEUKOCYTES URINE MODERATE (NEGATIVE); NITRITE URINE NEGATIVE (NEGATIVE); PH URINE 5.5; PROTEIN URINE 30 mg/dL (NEGATIVE); TURBIDITY URINE CLEAR (CLEAR); UR EPITHELIAL CELLS <10 /HPF (<10); URINE BACTERIA NEGATIVE /HPF; URINE RBC 20-40 /HPF (<10); URINE WBC TNTC /HPF (<10); UROBILINOGEN URINE NORMAL (NORMAL)
[2016-08-31] MEDS: DUONEB (A & A) INH SCH ×6 (03:53→23:05)
[2016-08-31 05:43] LABS: HEMATOCRIT 37.6 % (42.0-52.0); HEMOGLOBIN 10.6 g/dL (14.0-18.0); MCH 24.9 PG (27-31); MCHC 28.2 g/dL (33-37); MCV 88.3 FL (81-99); MPV 10.1 FL (7.4-10.4); RBC 4.26 XMIL (4.7-6.1)
[2016-08-31 06:03] LABS: AGAP 8; ALBUMIN 2.3 g/dL (3.5-5.0); BUN 16 mg/dL (8-22); CALCIUM 8.3 mg/dL (8.8-10.2); CHLORIDE 105 mmol/L (98-107); COSMO 290; POTASSIUM 3.8 mmol/L (3.5-5.1); SODIUM 145 mmol/L (136-145); TCO2 32 mmol/L (25-35)
[2016-08-31] MEDS: PRILOSEC PO SCH (09:10)
[2016-08-31] MEDS: NS 1,000 ML IV SCH (09:11)
[2016-08-31] MEDS: ASPIRIN PO SCH (09:11)
[2016-08-31] MEDS: XARELTO PO SCH (09:11)
[2016-08-31] MEDS: COREG PO SCH ×2 (09:11→21:51)
[2016-08-31] MEDS: ZOSYN 3.375 GM/NS 50 ML IV SCH ×2 (09:11→17:44)
--- NOTE | 2016-08-31 09:26 | PROGRESS NOTE ---
DATE: 08/31/2016 CHIEF COMPLAINT: Irregular heartbeat, abdominal distention. SUBJECTIVE: Mr. Thurston is generally feeling less distended. He is passing gas. He is still having some wheezes. No chest pain. Less abdominal discomfort. OBJECTIVE: Vital signs: Blood pressure is 141/88, temperature 98.6, pulse 119 , respirations 20. General: The patient is awake, lying in bed, NG tube in place. HEENT: Shows bilateral wheezes. Cardiac: Heart sounds are irregularly irregular. No gallop or murmur. Abdomen : Distended. Bowel sounds are markedly diminished. Extremities: Show no edema. Neurologic : Follows commands. Moves 4 extremities. DIAGNOSTIC DATA: White count 11,730, hemoglobin 10.6, hematocrit 37.6, platelet count 288,000, sodium 145, potassium 3.8, BUN 16, creatinine 0.8. Albumin is low at 2.3. IMPRESSION: 1. Patient who presented with bowel obstruction. He is responding to nasogastric suction. His abdominal distention appears to be improving. The surgical service is following here. 2. Atrial fibrillation, chronic, with variable ventricular response. 3. Status post resection of colon for cancer. 4. Recent prostatectomy, also for cancer. 5. History of hypertension. 6. History of hyperlipidemia. RECOMMENDATIONS: At this point in time, we have noted that he has a positive urine culture for E coli. This happens to be sensitive to cefazolin, nitrofurantoin, and piperacillin/tazobactam. The patient is getting, at this time, no antibiotics. I will notify the primary service about this finding so they can choose the proper antibiotic therapy for him. Thank you again for the opportunity to participate in this patient evaluation. [facility] HOSPITALJonah
--- NOTE | 2016-08-31 10:25 | PROGRESS NOTE ---
DATE: 08/31/2016 SUBJECTIVE: Mr. Jose Manuel Thurston is a 75-year-old white male who recently underwent a robotic assisted prostatectomy per Dr. Edmond. Approximately a week after surgery was readmitted to the hospital with abdominal distention, nausea, and vomiting and with a diagnosis of possible small bowel obstruction and we were asked to evaluate him. He has been in the ICU since admission. He has an NG tube in place. Last night, he became confused and had a head CT scan which showed no acute changes. This morning he is awake, cooperative. He states that he has passed some flatus and actually had a bowel movement yesterday. OBJECTIVE: Vital signs: His heart rate is 119, blood pressure 141/88, O2 saturation is 100% with nasal cannula O2. : Has a Rivas catheter tube in place. His urine output is adequate. Laboratory: His BUN and creatinine are 29 and 1. His white blood cell count has decreased from 13 to 12 over the last 24 hours. His hematocrit is 37%. He remains on IV antibiotics which include Zosyn. He is also on Xarelto and aspirin. Abdomen: Seems less distended but still there is some abdominal distention. There is no significant tenderness. Trocar sites seem to be healing well. PLAN: We will leave his NG tube for now. We want to increase his activity. If he continues to have bowel function we will remove his NG tube and slowly advanced his diet. We will continue IV antibiotics because it is improving his white blood cell count and clinically on a daily basis he feels better.
--- NOTE | 2016-08-31 10:41 | PROGRESS NOTE ---
DATE: 08/31/2016 SUBJECTIVE: The patient is feeling well. He stated that he was passing gas overnight. He had a bowel movement yesterday confirmed by the nursing staff. He had some episodes of confusion which is a little worse than it has been at home according to his . OBJECTIVE: Vital signs: Blood pressure is 141/88, pulse of 119, respirations 20, temperature 98.6 degrees, saturation of 100% on 4 L nasal cannula. General appearance: Morbidly obese, white male in mild distress due to abdominal distention. HEENT: Anicteric. NG tube in place. Neck: Supple. No JVD. No bruit. Cardiovascular: Mildly tachycardic but normal rhythm. No murmurs, rubs, or gallops. Pulmonary: Clear to auscultation bilaterally. GI: Soft, nontender. His abdomen is very distended and still has very hypoactive bowel sounds. Musculoskeletal: No clubbing, cyanosis, or edema. LABORATORY: White count is 11.73, hemoglobin 10.6, hematocrit of 37.6, platelets of 288,000. Chemistry: Sodium 145, potassium 3.8, chloride 105, bicarb 32, BUN 16, creatinine 0.8, glucose 109. ASSESSMENT AND PLAN: This is a 75-year-old white male, admitted to the hospital for early small bowel obstruction. 1. Small bowel obstruction. The patient has an NG tube in place that has been placed on intermittent low wall suction. He had a bowel movement overnight and is passing gas. His abdomen still very distended. We will get a KUB. Surgery is following. 2. Dementia with sunding. The patient is on Aricept. 3. Atrial fibrillation. The patient is taking Coreg but he has been refusing Xarelto. 4. Escherichia coli urinary tract infection. Resistant to fluoroquinolones. We start the patient on Zosyn. 5. Gastroesophageal reflux disease. Continue Prilosec. 6. Hyperlipidemia. Continue Pravachol. 7. Hypertension. Continue Norvasc and Coreg. 8. Deep vein thrombosis prophylaxis. Will put the patient on Lovenox if he continues to refuse Xarelto. 9. Code status. The patient is a full code. His is his surrogate decision maker.
[2016-08-31] MEDS: ARICEPT PO SCH (21:51)
[2016-08-31] MEDS: PRAVACHOL PO SCH (21:51)
[2016-09-01] MEDS: NS 1,000 ML IV SCH ×2 (00:02)
[2016-09-01] MEDS: ZOSYN 3.375 GM/NS 50 ML IV SCH ×3 (00:43→16:52)
[2016-09-01] MEDS: DUONEB (A & A) INH SCH ×6 (03:55→22:44)
[2016-09-01 06:47] LABS: AGAP 10; ALBUMIN 2.6 g/dL (3.5-5.0); BUN 13 mg/dL (8-22); CALCIUM 8.3 mg/dL (8.8-10.2); CHLORIDE 105 mmol/L (98-107); COSMO 293; POTASSIUM 3.8 mmol/L (3.5-5.1); SODIUM 148 mmol/L (136-145); TCO2 33 mmol/L (25-35)
[2016-09-01 06:49] LABS: HEMATOCRIT 39.2 % (42.0-52.0); HEMOGLOBIN 11.1 g/dL (14.0-18.0); MCH 25.1 PG (27-31); MCHC 28.3 g/dL (33-37); MCV 88.7 FL (81-99); RBC 4.42 XMIL (4.7-6.1)
[2016-09-01] MEDS ORDERED: 1/2 NS 1,000 ML IV SCH (07:00)
--- NOTE | 2016-09-01 07:43 | PROGRESS NOTE ---
DATE: 09/01/2016 SUBJECTIVE: Mr. Shelley is now on the floor. He continues to have his NG tube. His white blood cell count has returned to normal on IV antibiotics. He states that he has passed some flatus, but his abdomen remains distended. He is n.p.o. OBJECTIVE: Vital Signs: His heart rate is 78 to 121, blood pressure 132/78, and O2 saturation 97% on nasal cannula. He does have a Rivas catheter tube in place. His urine output has been good. Abdomen: He does not have significant abdominal tenderness. LABORATORY DATA: His hematocrit is 39%. His white blood cell count is 9. He has had 200 is 400 mL out of his NG tube per 24 hours. PLAN: We will continue NG suction this morning. I hope that with his white blood cell count becoming normal that his postoperative ileus will improve and that this is not an obstruction. We need to increase his activity, and I will look to decrease his fluids.
--- NOTE | 2016-09-01 08:06 | EKG Report ---
Test Performed on : 08/30/2016 06:25:24 AM Test Reason : dyspnea, afib Blood Pressure : / mmHG Vent. Rate : 095 BPM Atrial Rate : 277 BPM P-R Int : 000 ms QRS Dur : 150 ms QT Int : 328 ms P-R-T Axes : 000 134 036 degrees QTc Int : 412 ms Atrial fibrillation. Right bundle branch block Abnormal ECG When compared with ECG of 28-AUG-2016 21:50, QT has shortened Confirmed by Leonid MORRIS, Aman Mendoza ([id number]) on 09/01/2016 4:25:04 PM
[2016-09-01] MEDS: PRILOSEC PO SCH (08:56)
[2016-09-01] MEDS: COREG PO SCH ×2 (08:56→22:49)
[2016-09-01] MEDS: ASPIRIN PO SCH (08:57)
[2016-09-01] MEDS: XARELTO PO SCH (08:57)
[2016-09-01] MEDS: D5 1/2 NS + KCL 20 MEQ 1,000 ML IV SCH ×2 (09:02→22:51)
[2016-09-01] MEDS: LOVENOX SUBQ SCH (16:52)
--- NOTE | 2016-09-01 17:44 | PROGRESS NOTE ---
DATE: 09/01/2016 SUBJECTIVE: The patient is resting comfortably in bed. He currently has an NG tube in place to low intermittent suction. No acute events noted overnight. OBJECTIVE: Vital Signs: Temperature 98.6 degrees, blood pressure 143/88, heart rate 98, respirations 18, O2 saturation is 98% on 2 L nasal cannula. General: This is a chronically ill- appearing, elderly, morbidly obese male, lying in bed, in no acute distress. Head: Normocephalic, atraumatic. Heart: S1, S2 normal. Tachycardic. Lungs: Clear to auscultation bilaterally. No wheezes. No rales. No rhonchi. Abdomen: Positive bowel sounds. Soft, obese, nontender. Extremities: No edema. No cyanosis. No calf tenderness. Neurologic: The patient is alert and oriented x3. LABS: White blood cell count 9, hemoglobin 11, hematocrit 39, platelets 268,000. Sodium 148, potassium 3.8, chloride 105, CO2 33, BUN 13, creatinine 0.8, glucose 77, albumin 2.6. ASSESSMENT AND PLAN: 1. Partial small bowel obstruction. Management as per the general surgeon. 2. Atrial fibrillation. The patient is currently rate controlled. Once the patient is cleared for p.o. intake we will resume Zaroxolyn. 3. Dementia. Stable. Continue on Aricept. 4. Hypertension. Controlled. 5. Deep vein thrombosis prophylaxis. Will start the patient on Lovenox.
[2016-09-01] MEDS: ARICEPT PO SCH (22:49)
[2016-09-01] MEDS: PRAVACHOL PO SCH (22:49)
[2016-09-02] MEDS: ZOSYN 3.375 GM/NS 50 ML IV SCH ×3 (00:03→16:44)
[2016-09-02] MEDS: DUONEB (A & A) INH SCH ×6 (03:19→22:35)
[2016-09-02 05:57] LABS: HEMATOCRIT 38.9 % (42.0-52.0); MCH 24.8 PG (27-31); MCHC 28.3 g/dL (33-37); MCV 87.6 FL (81-99); MPV 10.1 FL (7.4-10.4); RBC 4.44 XMIL (4.7-6.1)
[2016-09-02 06:14] LABS: AGAP 8; ALBUMIN 2.4 g/dL (3.5-5.0); BUN 8 mg/dL (8-22); CALCIUM 8.2 mg/dL (8.8-10.2); CHLORIDE 103 mmol/L (98-107); COSMO 290; MAGNESIUM 1.9 mg/dL (1.5-2.7); POTASSIUM 3.7 mmol/L (3.5-5.1); SODIUM 146 mmol/L (136-145); TCO2 35 mmol/L (25-35)
--- NOTE | 2016-09-02 07:47 | Diag Imaging Result Document ---
PROCEDURE NAME: ABDOMEN FLAT/UPRIGHT - 09/02/2016 FLAT AND UPRIGHT RADIOGRAPH OF THE ABDOMEN: COMPARISON: 08/29/2016. FINDINGS: There is an NG tube identified with the tip projecting below the diaphragm and assumed to be in the stomach. Since the previous studies, there has been some improvement of the gaseous distention of small bowel especially when compared to the study dated 08/28/2016. There is still patchy residual small bowel gas, however. There is no evidence of large-volume free abdominal gas. Otherwise, the abdomen is stable. IMPRESSION: Improvement of gaseous distention of small bowel.
[2016-09-02] MEDS: COREG PO SCH ×2 (09:24→20:30)
[2016-09-02] MEDS: PRILOSEC PO SCH (09:24)
[2016-09-02] MEDS: D5 1/2 NS + KCL 20 MEQ 1,000 ML IV SCH ×2 (09:24→16:43)
[2016-09-02] MEDS: ASPIRIN PO SCH (09:24)
--- NOTE | 2016-09-02 11:06 | Diag Imaging Result Document ---
PROCEDURE NAME: CHEST-2 VIEWS - 09/02/2016 CHEST X-RAY 2 VIEWS, 09/02/2016: COMPARISON: 08/30/2016. FINDINGS: There is a small left basilar pleural effusion similar to prior. The lungs are otherwise grossly clear. Stable cardiomegaly. Pulmonary vascularity is grossly normal. Stable old rib deformities on the right. IMPRESSION: Cardiomegaly. Small left basilar pleural effusion.
--- NOTE | 2016-09-02 11:17 | EKG Report ---
Test Performed on : 09/02/2016 09:30:47 AM Test Reason : afib Blood Pressure : / mmHG Vent. Rate : 124 BPM Atrial Rate : 111 BPM P-R Int : 000 ms QRS Dur : 138 ms QT Int : 298 ms P-R-T Axes : 000 150 017 degrees QTc Int : 428 ms Atrial fibrillation. with rapid ventricular response. Right bundle branch block Abnormal ECG When compared with ECG of 30-AUG-2016 06:25, No significant change was found Confirmed by Leonid MORRIS, Aman Mendoza ([id number]) on 09/02/2016 5:24:11 PM
[2016-09-02] MEDS ORDERED: LANOXIN IV ONE (13:20)
[2016-09-02] MEDS: PROTONIX IV SCH (14:50)
[2016-09-02] MEDS: SODIUM CHLORIDE 0.9% INJ SCH (14:50)
--- NOTE | 2016-09-02 14:55 | PROGRESS NOTE ---
DATE: 09/02/2016 SUBJECTIVE: The patient was noted to be in atrial fibrillation with RVR this morning. He also states that he feels like his heart is racing and he was very short of breath when he ambulated with Physical Therapy. OBJECTIVE: Vital signs: Temperature 99, blood pressure 125/87, heart rate 132, respirations 20, and O2 saturation 93% on 2 L nasal cannula. General: This is a morbidly obese male lying in bed in no acute distress. HEENT: Head is normocephalic, atraumatic. Heart: S1, S2, normal. Irregularly irregular rate and rhythm. Lungs: Clear to auscultation bilaterally. No wheezing, no rales, and no rhonchi. Abdomen: Positive bowel sounds. Soft, nontender, and nondistended. Extremities: +1 edema. No cyanosis. No calf tenderness. Neurological: The patient is alert and oriented times 3. LABORATORY DATA: White blood cell count is 10, hemoglobin 11, hematocrit 38, and platelets 249. Magnesium is 1.9, albumin 2.4, phosphorus 1.9, potassium 3.7, chloride 103, BUN 8, and creatinine 0.7. ASSESSMENT AND PLAN: 1. Atrial fibrillation with rapid ventricular response. We will give the patient a dose of IV digoxin and start the patient on a Cardizem drip. We will also have the computer engineer notified. 2. Partial small bowel obstruction. Management as per the General Surgeon. 3. Dementia. Stable. 4. Hypertension. Controlled. 5. Morbid obesity. Aware. 6. Hypophosphatemia. We will replace the patient's phosphorus. 7. Deep venous thrombosis prophylaxis. The patient is currently on Lovenox.
[2016-09-02] MEDS: LOVENOX SUBQ SCH (16:44)
--- NOTE | 2016-09-02 16:56 | PROGRESS NOTE ---
DATE: 09/02/2016 Mr. Jose Manuel Thurston is hospital day 5. He recently underwent prostatectomy. Was readmitted about a week after his surgery with abdominal distention, nausea, and vomiting and an elevated creatinine consistent with dehydration. He was initially hospitalized in the ICU. We felt clinically improved with hydration IV antibiotics. His white blood cell count on admission was 24. He was transferred to [address] [place] [address] and I felt that his bowel activity was returning with flatus and small bowel movements but his abdomen remained distended and we have left his NG tube in place. This morning it was noted that he was in atrial fibrillation with a rapid rate and he was transferred back up to [facility] where he could be treated for his atrial fibrillation. His abdomen remains distended, not tightly but significantly. He still has an NG tube in place. I do not think that the volume of drainage is that much. He states that he is having flatus and had a bowel movement. Abdominal films show a lot of gas in his bowel. I feel we need to get his heart rate under control, his white blood cell count remains normal after antibiotics and hopefully his bowel function will return with conservative treatment. I discussed his care with the patient and the family at the bedside today.
[2016-09-02] MEDS: CARDIZEM 100 MG/NS 100 ML IV SCH (17:19)
[2016-09-02] MEDS: PRAVACHOL PO SCH (20:29)
[2016-09-02] MEDS: ARICEPT PO SCH (20:30)
[2016-09-03] MEDS: ZOSYN 3.375 GM/NS 50 ML IV SCH ×3 (00:17→16:53)
[2016-09-03] MEDS: DUONEB (A & A) INH SCH ×6 (02:53→23:13)
[2016-09-03] MEDS: D5 1/2 NS + KCL 20 MEQ 1,000 ML IV SCH ×2 (05:57→19:49)
[2016-09-03 06:23] LABS: AGAP 9; ALBUMIN 2.5 g/dL (3.5-5.0); BUN 6 mg/dL (8-22); CALCIUM 8.5 mg/dL (8.8-10.2); CHLORIDE 102 mmol/L (98-107); COSMO 289; MAGNESIUM 1.9 mg/dL (1.5-2.7); POTASSIUM 3.7 mmol/L (3.5-5.1); SODIUM 146 mmol/L (136-145); TCO2 35 mmol/L (25-35)
[2016-09-03 06:47] LABS: HEMATOCRIT 38.9 % (42.0-52.0); HEMOGLOBIN 11.2 g/dL (14.0-18.0); MCH 25.1 PG (27-31); MCHC 28.8 g/dL (33-37); MPV 9.6 FL (7.4-10.4); RBC 4.47 XMIL (4.7-6.1)
[2016-09-03] MEDS: ASPIRIN PO SCH (08:18)
[2016-09-03] MEDS: COREG PO SCH ×3 (08:18→23:15)
--- NOTE | 2016-09-03 09:12 | PROGRESS NOTE ---
DATE: 09/03/2016 Mr. Thurston is now hospitalized in [facility] because of atrial fibrillation. His rate is better controlled this morning. His heart rate is 90 to 94, blood pressure 118/89, O2 saturation 96%. He still has a Rivas catheter tube in. His BUN and creatinine are 6 and 0.7. His white blood cell count is again normal. He has been on IV Zosyn. His abdomen remains distended. He continues to have an NG tube in. He does admit to some flatus, has not had a bowel movement in 24 hours. He is pretty much NPO except for liquids. PLAN: Now that his heart rate is better controlled, we need to again increase his activity. We need to work to get his NG tube out. I think that his urinary tract infection is under control and now his atrial fibrillation, at least the rate is under control. Hopefully, he has no ongoing issue to create a postoperative ileus.
[2016-09-03] MEDS ORDERED: POTASSIUM PHOSPHATE 30 MMOL in NS 250 ML IV ONE (09:42)
[2016-09-03] MEDS: PROTONIX IV SCH (13:26)
[2016-09-03] MEDS: CARDIZEM 100 MG/NS 100 ML IV SCH (14:29)
[2016-09-03] MEDS: LOVENOX SUBQ SCH (16:53)
--- NOTE | 2016-09-03 17:14 | PROGRESS NOTE ---
DATE: 09/03/2016 SUBJECTIVE: The patient is resting comfortably in bed. He states that he had a rough night and did not sleep well. OBJECTIVE: Vital Signs: Temperature 97 degrees, blood pressure 126/77, heart rate 98, respirations 18, O2 saturations 93% on 3 L nasal cannula. General: This is a morbidly obese male, lying in bed, in no acute distress. Head: Normocephalic, atraumatic. Heart: S1, S2. Normal. Irregularly irregular rate and rhythm. Lungs: Clear to auscultation bilaterally. No wheezing. No rales. No rhonchi. Abdomen: Positive bowel sounds. Soft, nontender. Extremities: No edema. No cyanosis. No calf tenderness. Neurologic: The patient is alert and oriented x3. LABS: White blood cell count 8.6, hemoglobin 11, hematocrit 38, platelets 253,000. Sodium 146, potassium 3.7, chloride 102, CO2 35, BUN 6, creatinine 0.7, glucose 116. Phosphorus 1.8, magnesium 1.9. Albumin 2.5. ASSESSMENT AND PLAN: 1. Atrial fibrillation. The patient's heart rate is under better control on the Cardizem drip. Further management as per the algology teacher. 2. Partial small bowel obstruction. Management as per the general surgeon. 3. Hypophosphatemia. Will replace the patient's phosphorus. 4. Dementia. Stable. 5. Hypertension. Controlled. 6. Morbid obesity. Aware. 7. Deep vein thrombosis prophylaxis. Continue on Lovenox.
[2016-09-03] MEDS: PRAVACHOL PO SCH ×2 (19:49→23:15)
[2016-09-03] MEDS: ARICEPT PO SCH ×2 (19:49→23:15)
[2016-09-04] MEDS: ZOSYN 3.375 GM/NS 50 ML IV SCH ×3 (02:05→17:19)
[2016-09-04] MEDS: DUONEB (A & A) INH SCH ×6 (03:20→23:13)
[2016-09-04 05:24] LABS: MANUAL DIFF NEEDED? NO
[2016-09-04 05:28] LABS: BASO% 0.2 % (0.0-0.8); EOS# 0.35 X1000 (0.0-0.7); EOS% 3.7 % (0.0-10.0); HEMATOCRIT 38.5 % (42.0-52.0); HEMOGLOBIN 11.3 g/dL (14.0-18.0); IMM GRAN# 0.05 X1000 (0.0-0.04); IMM GRAN% 0.5 % (0.0-0.5); LYMPH# 1.31 X1000 (1.2-3.4); LYMPH% 13.7 % (20.5-51.1); MCH 24.8 PG (27-31); MCHC 29.4 g/dL (33-37); MCV 84.4 FL (81-99); MONO# 0.48 X1000 (0.11-0.59); MPV 9.8 FL (7.4-10.4); NEUT% 76.9 % (42.2-75.2); PLT 274 X1000 (130-400); RBC 4.56 XMIL (4.7-6.1)
[2016-09-04 05:40] LABS: AGAP 8; ALBUMIN 2.5 g/dL (3.5-5.0); BUN 6 mg/dL (8-22); CALCIUM 8.3 mg/dL (8.8-10.2); CHLORIDE 103 mmol/L (98-107); COSMO 286; MAGNESIUM 1.8 mg/dL (1.5-2.7); POTASSIUM 3.6 mmol/L (3.5-5.1); SODIUM 144 mmol/L (136-145); TCO2 33 mmol/L (25-35)
[2016-09-04] MEDS ORDERED: POTASSIUM PHOSPHATE 40 MMOL in NS 250 ML IV ONE (05:42)
--- NOTE | 2016-09-04 08:12 | PROGRESS NOTE ---
DATE: 09/04/2016 Mr. Thurston is now hospital day 6. He was admitted with an elevated white blood cell count which has come back to normal with IV antibiotics. There was a question whether he had a urinary tract infection. He has also gone into atrial fibrillation, causing him to be transferred to the CICU. There has also been a question about ileus or a small bowel obstruction, and he has had an NG tube since his admission. He still has a Rivas catheter tube in place. For the last several days, he has states that he has had some flatus and bowel movements. His abdomen continues to be distended. He has not had a significant amount of drainage from the NG tube. I have decided to remove his NG tube so that we can increase his activity and let ileus versus small-bowel obstruction to clear itself. We will keep him on ice chips. We will send him down to x-ray for better flat and upright abdominal films. We need to increase his activity. His Rivas catheter tube has to be addressed with urology. He remains afebrile with a normal white blood cell count and his IV Zosyn needs to be addressed, whether it needs to be stopped. We will ask physical therapy to help start ambulating him.
[2016-09-04] MEDS: COREG PO SCH ×2 (09:34→21:19)
[2016-09-04] MEDS: CARDIZEM 100 MG/NS 100 ML IV SCH (09:34)
[2016-09-04] MEDS: ASPIRIN PO SCH (09:34)
[2016-09-04] MEDS: D5 1/2 NS + KCL 20 MEQ 1,000 ML IV SCH ×2 (09:34→21:20)
--- NOTE | 2016-09-04 10:08 | Diag Imaging Result Document ---
PROCEDURE NAME: FLAT/UPRIGHT ABD/1 VIEW CHEST - 09/04/2016 FRONTAL CHEST X-RAY AND 2 VIEWS OF THE ABDOMEN, 09/04/2016: COMPARISON: 09/02/2016. FINDINGS: The nasogastric tube has been removed. Stable mild cardiomegaly. There is some stable streaky atelectasis in the left lung base. No new or focal infiltrates. There are cholecystectomy clips. No definite bowel obstruction or free air. IMPRESSION: Stable left basilar opacity. Stable cardiomegaly. No acute process in the abdomen.
[2016-09-04] MEDS: SODIUM CHLORIDE 0.9% INJ SCH (13:06)
[2016-09-04] MEDS: PROTONIX IV SCH (13:06)
[2016-09-04 13:38] LABS: URINE SOURCE CATH
[2016-09-04 13:46] LABS: BILIRUBIN URINE NEGATIVE (NEGATIVE); BLOOD URINE LARGE (NEGATIVE); COLOR YELLOW; GLUCOSE URINE NEGATIVE (NEGATIVE); LEUKOCYTES URINE SMALL (NEGATIVE); NITRITE URINE NEGATIVE (NEGATIVE); PROTEIN URINE 100 mg/dL (NEGATIVE); SP GRAVITY URINE 1.022; TURBIDITY URINE HAZY (CLEAR); UROBILINOGEN URINE NORMAL (NORMAL)
[2016-09-04 13:47] LABS: URINE MICRO REVIEW NEEDED? YES
[2016-09-04 14:12] LABS: UR EPITHELIAL CELLS <10 /HPF (<10); URINE BACTERIA NEGATIVE /HPF; URINE RBC TNTC /HPF (<10); URINE WBC TNTC /HPF (<10)
[2016-09-04 14:17] LABS: URINE CASTS NONE SEEN; URINE CRYSTALS NONE SEEN; URINE SMALL ROUND CELLS NONE SEEN
--- NOTE | 2016-09-04 15:16 | PROGRESS NOTE ---
DATE: 09/04/2016 SUBJECTIVE: Patient states that he feels better today. He remains on a Cardizem drip. His NG tube was removed this morning. OBJECTIVE: Vital Signs: Temperature 98 degrees, blood pressure 118/73, heart rate 91, respirations 21, O2 saturations 98% on 3 L nasal cannula. General: This is a morbidly obese male, sitting at the edge of the bed, in no acute distress. Head: Normocephalic, atraumatic. Heart: S1, S2. Normal. Irregularly irregular rhythm. Lungs: Clear to auscultation bilaterally. No wheezes, no rales. No rhonchi. Abdomen: Positive bowel sounds. Soft, obese, nontender. Extremities: +1 edema. No cyanosis. No calf tenderness. Neurologic: The patient is alert and oriented x3. LABS: Sodium 144, potassium 3.6, chloride 103, CO2 33, BUN 6, creatinine 0.8, white blood cell count 9.5, hemoglobin 11, hematocrit 30, platelets 274,000. IMAGING: Abdominal x-ray shows no evidence of obstruction. ASSESSMENT AND PLAN: 1. Ileus. Management as per the general surgeon. 2. Urinary tract infection secondary to Escherichia coli. A repeat urinalysis and urine culture have been ordered. We will await these results. Continue on IV Zosyn for now. 3. Atrial fibrillation. Management as per the analysis lead. 4. Hypophosphatemia. Will replace the patient's phosphorus. 5. Hypertension. Controlled. 6. Morbid obesity. Aware. 7. Deep vein thrombosis prophylaxis. Continue on Lovenox. 8. Continue with physical therapy.
[2016-09-04] MEDS: LOVENOX SUBQ SCH (17:19)
[2016-09-04] MEDS: ARICEPT PO SCH (21:19)
[2016-09-04] MEDS: PRAVACHOL PO SCH (21:19)
[2016-09-05] MEDS: ZOSYN 3.375 GM/NS 50 ML IV SCH ×2 (01:42→09:11)
[2016-09-05] MEDS: DUONEB (A & A) INH SCH ×6 (03:30→22:32)
[2016-09-05] MEDS: CARDIZEM 100 MG/NS 100 ML IV SCH ×2 (05:22→18:41)
[2016-09-05 05:32] LABS: MANUAL DIFF NEEDED? NO
[2016-09-05 05:35] LABS: BASO% 0.1 % (0.0-0.8); EOS% 2.4 % (0.0-10.0); HEMATOCRIT 35.2 % (42.0-52.0); HEMOGLOBIN 10.4 g/dL (14.0-18.0); IMM GRAN# 0.05 X1000 (0.0-0.04); IMM GRAN% 0.4 % (0.0-0.5); LYMPH# 1.27 X1000 (1.2-3.4); MCH 25.1 PG (27-31); MCHC 29.5 g/dL (33-37); MONO# 0.66 X1000 (0.11-0.59); MONO% 5.2 % (1.7-9.3); MPV 10.2 FL (7.4-10.4); NEUT% 81.9 % (42.2-75.2); PLT 247 X1000 (130-400); RBC 4.14 XMIL (4.7-6.1)
[2016-09-05 05:57] LABS: AGAP 5; ALBUMIN 2.3 g/dL (3.5-5.0); BUN 6 mg/dL (8-22); CALCIUM 7.8 mg/dL (8.8-10.2); CHLORIDE 101 mmol/L (98-107); COSMO 280; POTASSIUM 3.8 mmol/L (3.5-5.1); SODIUM 141 mmol/L (136-145); TCO2 35 mmol/L (25-35)
[2016-09-05] MEDS ORDERED: MUCOMYST 20% INH ONE (07:58)
[2016-09-05] MEDS: D5 1/2 NS + KCL 20 MEQ 1,000 ML IV SCH ×2 (09:08→22:04)
[2016-09-05] MEDS: ASPIRIN PO SCH (09:10)
[2016-09-05] MEDS: COREG PO SCH ×2 (09:10→21:56)
--- NOTE | 2016-09-05 10:12 | Diag Imaging Result Document ---
PROCEDURE NAME: CHEST-2 VIEWS - 09/05/2016 PA AND LATERAL RADIOGRAPH OF THE CHEST: COMPARISON: 09/04/2016. FINDINGS: There is suggestion of stable atelectasis at the left lung base. No new consolidations are identified. Cardiomegaly is stable. IMPRESSION: Stable chest.
--- NOTE | 2016-09-05 11:54 | PROGRESS NOTE ---
DATE: 09/05/2016 Mr. Thurston has gone 24 hours without his NG tube and has had no nausea or vomiting. He continues to pass flatus. His abdominal films seem to be improved. His abdomen is still distended. He has some shortness of breath with wheezing, but overall I feel he is improving clinically. His Rivas catheter tube was removed this morning. He remains on IV Zosyn and his white blood cell count has been normal, but today it is 12.7, hematocrit 35%. His heart rate is 93 to 105. He is in atrial fibrillation, being controlled with medications. O2 saturation is 91% on 3L nasal cannula O2. Urine output has been adequate. His BUN and creatinine are 6 and 0.8. The rest of his electrolytes are within normal limits. PLAN: We will advance his diet to a full liquid diet. Hopefully, over the weekend we can advance his diet to a regular diet. We need to increase his activity.
[2016-09-05] MEDS ORDERED: SODIUM PHOSPHATE 30 MMOL in NS 250 ML IV ONE (12:03)
--- NOTE | 2016-09-05 12:45 | PROGRESS NOTE ---
DATE: 09/05/2016 SUBJECTIVE: The patient is resting comfortably in bed. He has no complaints at this time. OBJECTIVE: Vital Signs: Temperature 97 degrees, blood pressure 143/71, heart rate 93 respirations 18, O2 saturations 94% on 3 L nasal cannula. General: This is a morbidly obese male, sitting in bed in no acute distress. Head: Normocephalic, atraumatic. Heart: S1, S2. Normal. Irregularly irregular rhythm. Lungs: Clear to auscultation bilaterally. No wheezes, no rales. No rhonchi. Abdomen: Positive bowel sounds. Soft, nontender, nondistended. Extremities: No edema. No cyanosis. No calf tenderness. Neurologic: The patient is alert and oriented x3. LABS: White blood cell count 12, hemoglobin 10, hematocrit 35, platelets 247. Sodium 141, potassium 3.8, chloride 101, CO2 35, BUN 6, creatinine 0.8, glucose 119, phosphorus 2.5. ASSESSMENT AND PLAN: 1. Ileus. This appears to have evolved. The patient has been started on a full liquid diet by the general surgeon. 2. Urinary tract infection secondary to Escherichia coli. The patient's repeat urine culture so far is showing no growth. Will await the final culture results. 3. Fever. We will check blood cultures and a chest x-ray. 4. Atrial fibrillation. The patient is also on Cardizem drip. Management is as per the pre sales technical engineer. 5. Hypertension. Controlled. 6. Hypophosphatemia. Will replace the patient's phosphorus. 7. Morbid obesity. Aware. 8. Deep vein thrombosis prophylaxis. Continue on Lovenox. 9. Continue with physical therapy.
[2016-09-05] MEDS: PROTONIX IV SCH (13:33)
[2016-09-05] MEDS: SODIUM CHLORIDE 0.9% INJ SCH (13:33)
[2016-09-05] MEDS ORDERED: VANCOMYCIN IV PER PHARMACY MISC SCH (14:15)
--- NOTE | 2016-09-05 15:37 | CONSULTATION ---
DATE OF CONSULTATION: 09/05/2016 CONCLUSION: This patient recently had a prostatectomy. He presented to the hospital. He had an ileus with marked enlargement of his abdomen. He also on x-ray appeared to have a left lower lobe pneumonia, and he also has an E. coli urinary tract infection. Today it was noted that his white blood cell count had increased. I think most likely that the patient's infection is coming from a left lower lobe pneumonia. RECOMMENDATIONS: I have placed the patient on a combination of vancomycin and cefepime pending culture results. DISCUSSION: This gentleman recently has had a prostatectomy. He came back to the hospital. He was short of breath. He had protrusion of his abdomen and appeared to have a severe ileus. His lab studies show a CBC with a white count of 12,690, hemoglobin 10.4, and platelet count 247,000. Creatinine 0.8. GFR is greater than 60. Blood cultures are pending. Urine culture was negative. The patient's chest x-ray showed stable atelectasis in the left lung base and no new consolidations. The x-ray of the abdomen showed that there was a left basilar opacity. PAST MEDICAL HISTORY/REVIEW OF SYSTEMS: Eyes and ears: The patient denies difficulty hearing or seeing. Neck: No stiffness. Respiratory: The patient has not been coughing. Cardiovascular: No chest pain or palpitations. GI: Patient's abdomen is distended. He has passed some stool however, but not a lot. Genitourinary: The patient had a urinary catheter inserted; it was removed this morning, and thus far he has passed only 20-30 mL of urine. The remainder of the patient's review of systems was completed and was negative. PREVIOUS HOSPITALIZATIONS AND OPERATIONS: He has had a prostatectomy, a colectomy, bilateral knee replacement, appendectomy, left carotid endarterectomy, and recently had removal of the prostate. MEDICAL DISEASES: Positive for dementia, gastroesophageal reflux disease, hypertension, diabetes mellitus, hyperlipidemia, atrial fibrillation, and benign prostatic hypertrophy, FAMILY HISTORY: Positive for diabetes mellitus, hypertension, cancer and heart attack. INFECTIOUS DISEASE: Positive for UTI. SOCIAL HISTORY: The patient is and has a dog as a pet. He does not smoke cigarettes, drink alcoholic beverages or use illicit drugs. ALLERGIES: The patient's chart lists no known drug allergies. HOME MEDICATIONS: 1. Xarelto. 2. Pravachol. 3. Ditropan. 4. Omeprazole. 5. Hydrocodone. 6. Aricept. 7. Cipro. 8. Coreg. 9. Aspirin. 10. Norvasc. PHYSICAL EXAMINATION: Vital Signs: Temperature is 98.5 degrees, pulse 92, respirations 18, blood pressure 120/78. The patient weighs 252 pounds. General: This is a somewhat ill-appearing, elderly male, who is in no acute distress, except for the fact that his abdomen is slightly distended. Head, eyes, ears, nose and throat: He can hear my spoken words and see near objects. No drainage noted from the nose or ears. Neck: No meningismus. Thorax: There was increased AP diameter of the chest. Lungs: Clear to auscultation. Cardiovascular: Irregular heart rate. Abdomen: Soft, was distended. The incision in the lower part of the abdomen was healing well. I heard a few bowel sounds. Neurologic: Patient is awake. He can move his extremities. There is no tremor. His sensation was intact to touch. His memory, as regarding his medical history, was decreased. Thank you for the consult. [facility] HOSPITALJonah
[2016-09-05] MEDS: CARDIZEM CD PO SCH (16:08)
[2016-09-05] MEDS: LOVENOX SUBQ SCH (16:08)
[2016-09-05] MEDS: MAXIPIME 2 GM/NS 100 ML IV SCH (16:08)
[2016-09-05] MEDS ORDERED: CARDIZEM 100 MG/NS 100 ML ONE (17:25)
[2016-09-05] MEDS ORDERED: CARDIZEM IV ONE (18:24)
[2016-09-05] MEDS: VANCOMYCIN 2 GM in NS 500 ML IV SCH (19:03)
[2016-09-05] MEDS: MUCOMYST 20% INH SCH (19:22)
[2016-09-05] MEDS: PRAVACHOL PO SCH (21:56)
[2016-09-05] MEDS: ARICEPT PO SCH (21:56)
[2016-09-06] MEDS: MAXIPIME 2 GM/NS 100 ML IV SCH ×3 (00:20→16:09)
[2016-09-06] MEDS: DUONEB (A & A) INH SCH ×6 (02:38→22:57)
[2016-09-06] MEDS: CARDIZEM 100 MG/NS 100 ML IV SCH ×2 (04:20→21:15)
[2016-09-06] MEDS: CALMOSEPTINE OINTMENT TOP PRN ×2 (05:34→13:18)
[2016-09-06 05:54] LABS: BASO% 0.1 % (0.0-0.8); EOS# 0.26 X1000 (0.0-0.7); HEMATOCRIT 34.5 % (42.0-52.0); HEMOGLOBIN 9.9 g/dL (14.0-18.0); IMM GRAN# 0.05 X1000 (0.0-0.04); IMM GRAN% 0.4 % (0.0-0.5); LYMPH# 1.21 X1000 (1.2-3.4); LYMPH% 9.2 % (20.5-51.1); MANUAL DIFF NEEDED? NO; MCH 24.3 PG (27-31); MCHC 28.7 g/dL (33-37); MCV 84.6 FL (81-99); MONO# 0.76 X1000 (0.11-0.59); MONO% 5.8 % (1.7-9.3); MPV 10.6 FL (7.4-10.4); NEUT% 82.5 % (42.2-75.2); PLT 249 X1000 (130-400); RBC 4.08 XMIL (4.7-6.1)
[2016-09-06 06:18] LABS: AGAP 11; ALBUMIN 2.2 g/dL (3.5-5.0); BUN 7 mg/dL (8-22); CALCIUM 8.8 mg/dL (8.8-10.2); CHLORIDE 101 mmol/L (98-107); COSMO 283; MAGNESIUM 1.7 mg/dL (1.5-2.7); POTASSIUM 3.4 mmol/L (3.5-5.1); SODIUM 142 mmol/L (136-145); TCO2 30 mmol/L (25-35)
[2016-09-06] MEDS: MUCOMYST 20% INH SCH ×2 (07:55→19:05)
[2016-09-06] MEDS ORDERED: KLOR-CON PO ONE (08:38)
[2016-09-06] MEDS: D5 1/2 NS + KCL 20 MEQ 1,000 ML IV SCH (09:27)
[2016-09-06] MEDS: CARDIZEM CD PO SCH (09:27)
[2016-09-06] MEDS: ASPIRIN PO SCH (09:27)
[2016-09-06] MEDS: COREG PO SCH ×2 (09:27→21:14)
[2016-09-06] MEDS: SOLU-MEDROL IV SCH ×2 (09:30→16:12)
--- NOTE | 2016-09-06 10:42 | PROGRESS NOTE ---
DATE: 09/06/2016 SUBJECTIVE: He is passing gas, no nausea, tolerating the diet. OBJECTIVE/PHYSICAL EXAMINATION: Vital signs: No fevers this morning, pulse 76, blood pressure 141/73. Abdomen: Soft, mildly distended and tympanic but nontender. Incision is clean, dry, and intact. REVIEW OF HIS LABS: White count is mildly elevated at 13. Creatinine is normal. Potassium is a little low at 3.4, magnesium low at 1.7. ASSESSMENT AND PLAN: A 75-year-old male status post radical prostatectomy robotically who has a resolving ileus with partial obstruction. He is doing well. He is tolerating the diet, full liquids, and having bowel function. Will continue to monitor him, advance his diet as tolerated. Please call if questions or concerns. Further care per the hospitalist and urology service.
--- NOTE | 2016-09-06 13:10 | PROGRESS NOTE ---
DATE: 09/06/2016 SUBJECTIVE: Mr. Thurston reports he is doing well. He has no heart racing with the exception for brief moments when he coughs. He has no fevers. He is tolerating oral intake. PHYSICAL EXAMINATION: Afebrile. Heart rate at 89, blood pressure is 143/84. Notably he is on 5 mg of Cardizem as well as oral Cardizem. General: No acute distress. Cardiovascular: He is in a irregularly irregular rhythm, 1+ lower extremity edema. Chest: He has coarse breath sounds bilaterally. No increased work of breathing. Abdomen: Soft, nontender, nondistended. Skin Exam: Warm and dry throughout without any rashes PERTINENT DATA: His white count is 13.1, his hematocrit is 34, his platelet count is 249,000. Sodium is 142, potassium 3.4. His albumin is 2.2. BUN 7, creatinine 0.8. ASSESSMENT: Atrial fibrillation. PLAN: The patient is currently on a diltiazem infusion. I will increase his oral Cardizem to 180 mg. We will try to continue to titrate off his Cardizem drip. Otherwise the patient seems to be progressing from a pulmonary standpoint.
[2016-09-06] MEDS: PROTONIX IV SCH (13:18)
[2016-09-06] MEDS: SODIUM CHLORIDE 0.9% INJ SCH (13:18)
--- NOTE | 2016-09-06 16:05 | PROGRESS NOTE ---
DATE: 09/06/2016 SUBJECTIVE: The patient is sitting at the edge of the bed. He is complaining of shortness of breath this morning. He is currently on a Cardizem drip. OBJECTIVE: Vital Signs: Temperature 97 degrees, blood pressure 143/84, heart rate 75, respirations 22, O2 saturations 94% on 2 L nasal cannula. General: This is a morbidly obese, elderly male, sitting in bed, in no acute distress. Head: Normocephalic, atraumatic. Heart: S1, S2. Normal. Irregularly irregular rhythm. Lungs: Coarse breath sounds with expiratory wheezes. Abdomen: Obese, positive bowel sounds. Soft, nontender. Extremities: +1 edema. No cyanosis. No calf tenderness. Neurologic: The patient is alert and oriented x3. LABS: White blood cell count 13, hemoglobin 9.9, hematocrit 34, platelets 249,000, sodium 142, potassium 3.4, chloride 101, CO2 30, BUN 7, creatinine 0.8, glucose 134, albumin 2.2, magnesium 1.7. ASSESSMENT AND PLAN: 1. Pneumonia. The patient has been started on vancomycin and cefepime by Dr. Simon. We will continue to monitor for improvement. Continue on bronchodilator therapy. 2. Chronic obstructive pulmonary disease exacerbation. Will start the patient on IV Solu-Medrol. Continue on bronchodilator therapy as well. 3. Atrial fibrillation. The patient is currently on a Cardizem drip. Cardiology is following. 4. Ileus. Resolved. The patient appears to be tolerating his diet without any difficulty. 5. Morbid obesity. Aware. 6. Hypokalemia. We will replace the patient's potassium. 7. GI prophylaxis. Continue on IV Protonix. 8. Deep vein thrombosis prophylaxis. Continue on Lovenox. 9. Continue with physical therapy.
[2016-09-06] MEDS: LOVENOX SUBQ SCH (16:09)
[2016-09-06] MEDS: VANCOMYCIN 2 GM in NS 500 ML IV SCH (16:12)
[2016-09-06] MEDS: PRAVACHOL PO SCH (21:14)
[2016-09-06] MEDS: ARICEPT PO SCH (21:14)
[2016-09-07] MEDS: MAXIPIME 2 GM/NS 100 ML IV SCH ×4 (00:17→23:44)
[2016-09-07] MEDS: SOLU-MEDROL IV SCH ×4 (03:03→23:42)
[2016-09-07] MEDS: DUONEB (A & A) INH SCH ×6 (03:16→23:10)
[2016-09-07 06:18] LABS: BASO% 0.1 % (0.0-0.8); HEMATOCRIT 35.1 % (42.0-52.0); HEMOGLOBIN 10.2 g/dL (14.0-18.0); IMM GRAN# 0.06 X1000 (0.0-0.04); IMM GRAN% 0.4 % (0.0-0.5); LYMPH# 0.84 X1000 (1.2-3.4); LYMPH% 5.2 % (20.5-51.1); MANUAL DIFF NEEDED? YES; MCH 24.7 PG (27-31); MCHC 29.1 g/dL (33-37); MONO# 0.21 X1000 (0.11-0.59); MONO% 1.3 % (1.7-9.3); MPV 10.6 FL (7.4-10.4); PLT 277 X1000 (130-400); RBC 4.13 XMIL (4.7-6.1)
[2016-09-07 06:41] LABS: AGAP 10; ALBUMIN 2.4 g/dL (3.5-5.0); BUN 11 mg/dL (8-22); CHLORIDE 101 mmol/L (98-107); COSMO 280; POTASSIUM 4.1 mmol/L (3.5-5.1); SODIUM 139 mmol/L (136-145); TCO2 28 mmol/L (25-35)
[2016-09-07 07:28] LABS: BANDS 1 % (0-1); LYMPHS 8 % (21-51); MONO 1 % (1-9)
[2016-09-07] MEDS: MUCOMYST 20% INH SCH ×2 (07:44→19:15)
[2016-09-07] MEDS ORDERED: TESSALON PO SCH (09:00)
[2016-09-07] MEDS: ASPIRIN PO SCH (09:01)
[2016-09-07] MEDS: CARDIZEM CD PO SCH (09:01)
[2016-09-07] MEDS: COREG PO SCH ×2 (09:01→20:34)
[2016-09-07] MEDS: TESSALON PO SCH ×3 (09:01→20:34)
[2016-09-07] MEDS ORDERED: LASIX IV ONE (09:35)
[2016-09-07] MEDS ORDERED: LASIX IV SCH (11:45)
[2016-09-07] MEDS: PROTONIX IV SCH (14:16)
[2016-09-07] MEDS: SODIUM CHLORIDE 0.9% INJ SCH (14:16)
--- NOTE | 2016-09-07 14:48 | PROGRESS NOTE ---
DATE: 09/07/2016 SUBJECTIVE: The patient states that he has been coughing a lot. He is still short of breath with minimal exertion. He is having regular bowel movements and denies having any abdominal pain. OBJECTIVE: Vital Signs: Temperature 97 degrees, blood pressure 146/83, heart rate 95, respirations 22, O2 saturations 93% on 3 L nasal cannula. General: This is a morbidly obese, elderly male, lying in bed, in no acute distress. Head: Normocephalic, atraumatic. Heart: S1, S2. Normal. Irregularly irregular rhythms. Lungs: Coarse breath sounds with mild expiratory wheezes. Abdomen: Positive bowel sounds. Soft, obese, nontender , nondistended. Extremities: 2+ edema. The patient is alert and oriented x3. LABORATORY: White blood cell count 16, hemoglobin 10, hematocrit 35, platelets 277,000. Sodium 139, potassium 4.1, chloride 101. CO2 28, BUN 11, creatinine 0.7, glucose 161, phosphorus 3.1, proBNP 2395, albumin 2.4. ASSESSMENT AND PLAN: 1. Pneumonia. Continue on the current IV antibiotic regimen as directed by Dr. Simon. Continue with bronchodilator therapy and incentive spirometry. 2. Volume overload. We will give the patient a dose of Lasix today and monitor his urine output closely. 3. Ileus. Resolved. 4. Atrial fibrillation. The patient remains on a Cardizem drip. The computer installation engineer is adjusting the patient's oral rate control medications. 5. Morbid obesity. Aware. 6. Leukocytosis. The patient's white blood cell count has increased from what it was yesterday. We will defer to Dr. Simon regarding this. 7. Hypertension. Controlled. 8. Deep vein thrombosis prophylaxis. [facility]ovenox. [facility]
[2016-09-07] MEDS: LOVENOX SUBQ SCH (16:26)
[2016-09-07] MEDS: VANCOMYCIN 2 GM in NS 500 ML IV SCH (16:42)
[2016-09-07] MEDS: CARDIZEM 100 MG/NS 100 ML IV SCH (18:23)
[2016-09-07] MEDS: PRAVACHOL PO SCH (20:34)
[2016-09-07] MEDS: ARICEPT PO SCH (20:35)
[2016-09-08] MEDS: SOLU-MEDROL IV SCH ×3 (00:09→21:18)
[2016-09-08] MEDS: DUONEB (A & A) INH SCH ×6 (03:14→23:00)
[2016-09-08 06:00] LABS: HEMATOCRIT 36.6 % (42.0-52.0); HEMOGLOBIN 10.7 g/dL (14.0-18.0); IMM GRAN# 0.05 X1000 (0.0-0.04); IMM GRAN% 0.2 % (0.0-0.5); LYMPH# 0.83 X1000 (1.2-3.4); LYMPH% 3.6 % (20.5-51.1); MANUAL DIFF NEEDED? YES; MCH 24.7 PG (27-31); MCHC 29.2 g/dL (33-37); MCV 84.3 FL (81-99); MONO# 0.51 X1000 (0.11-0.59); MONO% 2.2 % (1.7-9.3); MPV 10.4 FL (7.4-10.4); PLT 350 X1000 (130-400); RBC 4.34 XMIL (4.7-6.1)
[2016-09-08 06:27] LABS: INR 1.08; PTT 23.6 Seconds (22.0-36.0)
[2016-09-08 06:42] LABS: AGAP 9; ALBUMIN 2.5 g/dL (3.5-5.0); BUN 18 mg/dL (8-22); CALCIUM 9.3 mg/dL (8.8-10.2); CHLORIDE 98 mmol/L (98-107); COSMO 284; SODIUM 140 mmol/L (136-145); TCO2 33 mmol/L (25-35)
[2016-09-08 06:49] LABS: BANDS 2 % (0-1); LYMPHS 7 % (21-51); MONO 1 % (1-9)
[2016-09-08 06:50] LABS: HYPOCHROM OCCASIONAL
--- NOTE | 2016-09-08 07:26 | PROGRESS NOTE ---
DATE: 09/08/2016 PRESENT ILLNESS: I am treating the patient for a left lower lobe pneumonia and E. coli urinary tract infection. MEDICATIONS: The patient is on a combination of cefepime and vancomycin. This is day 3 of treatment with both antibiotics. PHYSICAL EXAMINATION: Vital Signs: Temperature is 97 degrees, pulse is 79, respirations 15, blood pressure 148/67. General: This is an ill-appearing, elderly male. He is in no acute distress. In general, the patient has generalized edema. Lungs: Clear to auscultation. Cardiovascular: The patient's heart rate appeared to me to be irregular. Abdomen: Seems distended. It is soft and it is not tender. Neurologic: Patient is awake. He can move his extremities. There is no tremor. LAB AND X-RAY: The patient's x-ray was just taken this morning. I do not have the report back. His lab studies show a CBC with a white count of 23,200, hemoglobin 10.7, and platelet count of 350,000. Creatinine is 0.7. GFR is greater than 60. Blood and urine cultures are sterile. ASSESSMENT AND PLAN: The patient does have pneumonia and a urinary tract infection. Clinically, he is feeling better. I would like to know the results of the x-ray to see if his pneumonia is getting better. One disturbing factor is that his white count has increased. I think it is possible that some of the leukocytosis could be due to the fact that the patient is getting steroids. My plan is to continue with the 2 antibiotics the patient is on now, namely cefepime and vancomycin, pending results of today's chest x-ray. COMORBIDITIES: He is elderly, he has gastroesophageal reflux disease, diabetes mellitus. [facility]
[2016-09-08] MEDS: MUCOMYST 20% INH SCH ×2 (07:45→19:30)
--- NOTE | 2016-09-08 08:04 | Diag Imaging Result Document ---
PROCEDURE NAME: CHEST-PORTABLE - 09/08/2016 PORTABLE CHEST X-RAY, 09/08/2016: COMPARISON: 09/05/2016. FINDINGS: Stable low lung volumes and mild cardiomegaly. No infiltrates. No pneumothorax or large effusion. IMPRESSION: No change from prior.
[2016-09-08] MEDS: MAXIPIME 2 GM/NS 100 ML IV SCH ×3 (09:08→23:59)
[2016-09-08] MEDS: COREG PO SCH ×2 (09:09→21:18)
[2016-09-08] MEDS: TESSALON PO SCH ×3 (09:09→21:18)
[2016-09-08] MEDS: CARDIZEM CD PO SCH (09:09)
[2016-09-08] MEDS: ASPIRIN PO SCH (09:09)
[2016-09-08] MEDS ORDERED: NS 250 ML ONE (09:27)
[2016-09-08] MEDS ORDERED: LASIX IV SCH (12:45)
--- NOTE | 2016-09-08 13:10 | PROGRESS NOTE ---
DATE: 09/08/2016 SUBJECTIVE: The patient feels improved. Breathing is improved. OBJECTIVE: Blood pressure 152/91, heart rate of 85, respiratory rate 20, temperature 98.5 degrees, 95% on 3 L.Cardiovascular: Regular rate and rhythm. Pulmonary: Bilateral breath sounds. Clear to auscultation. Gastrointestinal: Soft, nontender, nondistended. Bowel sounds are positive. Extremities: No clubbing or cyanosis. Lymphatics: No peripheral edema. Neurological Examination: He has 2+ pitting edema up to the mid-bledsoe on both sides. PROBLEM LIST: 1. Pneumonia. He is currently on vancomycin day 4 and cefepime day 4, per Dr. Simon. 2. Pneumonia. As described. 3. Volume overload. I am going to continue Lasix today. He still has a lot of swelling. 4. Atrial fibrillation. He is stable. We switch him to oral Cardizem. Appears to be doing better. 5. Hypertension. Is improving. DISPOSITION: I think he is doing okay to go the floor now. His white count has increased. He is on steroids. I am going to drop down his steroid dose to every 12 on methylprednisolone and follow. We will repeat that level tomorrow. DISPOSITION: Pending resolution of his multiple issues.
[2016-09-08] MEDS: SODIUM CHLORIDE 0.9% INJ SCH (13:18)
[2016-09-08] MEDS: PROTONIX IV SCH (13:18)
[2016-09-08] MEDS: LASIX IV SCH ×2 (13:18→23:59)
--- NOTE | 2016-09-08 14:41 | Diag Imaging Result Document ---
PROCEDURE NAME: CHEST-PORTABLE - 09/08/2016 PORTABLE CHEST X-RAY: TIME: 1415 hours. COMPARISON: 0600 hours. FINDINGS: There is a new left PICC line with the catheter tip at the lower SVC. Stable cardiomegaly. Lung volumes are low with central crowding. IMPRESSION: Good left PICC line placement.
[2016-09-08] MEDS: LOVENOX SUBQ SCH (16:45)
[2016-09-08] MEDS: VANCOMYCIN 2 GM in NS 500 ML IV SCH (19:08)
--- NOTE | 2016-09-08 19:37 | PROGRESS NOTE ---
DATE: 09/08/2016 Mr. Thurston is approaching day 10 in the hospital. He is status post robotic assisted prostatectomy per Dr. Edmond. He was admitted with abdominal distention, urinary tract infection with E. coli and now we are concerned about pneumonia. I feel that he has suffered from postoperative ileus which has improved during his hospitalization. His NG tube has been out. He has been tolerating full liquids and we will advance his diet to a regular diet. Recently his white blood cell count has been rising. He is on Maxipime and vancomycin for treatment of pneumonia. He had a PICC line placed today for more long-term antibiotic.
[2016-09-08] MEDS: ARICEPT PO SCH (21:18)
[2016-09-08] MEDS: PRAVACHOL PO SCH (21:19)
[2016-09-09] MEDS: DUONEB (A & A) INH SCH ×6 (03:34→23:31)
[2016-09-09 07:19] LABS: HEMATOCRIT 36.7 % (42.0-52.0); IMM GRAN# 0.03 X1000 (0.0-0.04); IMM GRAN% 0.2 % (0.0-0.5); LYMPH# 0.71 X1000 (1.2-3.4); LYMPH% 4.5 % (20.5-51.1); MANUAL DIFF NEEDED? YES; MCH 24.9 PG (27-31); MONO# 0.56 X1000 (0.11-0.59); MONO% 3.5 % (1.7-9.3); MPV 10.3 FL (7.4-10.4); NEUT% 91.8 % (42.2-75.2); PLT 372 X1000 (130-400); RBC 4.42 XMIL (4.7-6.1)
[2016-09-09 07:28] LABS: AGAP 9; ALBUMIN 2.6 g/dL (3.5-5.0); BUN 25 mg/dL (8-22); CALCIUM 8.6 mg/dL (8.8-10.2); CHLORIDE 99 mmol/L (98-107); COSMO 293; POTASSIUM 3.5 mmol/L (3.5-5.1); SODIUM 144 mmol/L (136-145); TCO2 36 mmol/L (25-35)
[2016-09-09] MEDS: MUCOMYST 20% INH SCH ×2 (07:47→19:25)
[2016-09-09 07:56] LABS: BANDS 1 % (0-1); LYMPHS 5 % (21-51); MONO 1 % (1-9)
[2016-09-09] MEDS: MAXIPIME 2 GM/NS 100 ML IV SCH ×3 (09:00→23:25)
--- NOTE | 2016-09-09 09:06 | PROGRESS NOTE ---
DATE: 09/09/2016 SUBJECTIVE: Mr. Thurston has been moved from the [facility] to the [address] [place] [address]. He has been treated for pneumonia, and his white blood cell count has decreased over the last 24 hours from 23 to 15. He is tolerating his diet, although his appetite is marginal. He is having regular flatus and bowel movements. His abdomen remains distended. He still has some work of breathing. OBJECTIVE: His heart rate is 83, blood pressure 131/82. He is in atrial fibrillation. Controlled with medications. His O2 saturation is 92% to 94%. He is on nasal cannula O2. He is voiding without a Rivas. He has had a recent prostate surgery. His hematocrit is stable at 37%. White blood cell count is 15 and he is afebrile. He is on vancomycin and Maxipime. His BUN and creatinine are 25 and 0.8. PLAN: We will continue a regular diet and treatment for pneumonia.
[2016-09-09] MEDS: ASPIRIN PO SCH (09:42)
[2016-09-09] MEDS: TESSALON PO SCH ×3 (09:44→21:51)
[2016-09-09] MEDS: SOLU-MEDROL IV SCH ×2 (09:45→21:51)
[2016-09-09] MEDS: COREG PO SCH ×2 (09:45→21:51)
[2016-09-09] MEDS: CARDIZEM CD PO SCH (09:46)
[2016-09-09] MEDS: PROTONIX IV SCH (12:45)
[2016-09-09] MEDS: SODIUM CHLORIDE 0.9% INJ SCH (12:45)
[2016-09-09] MEDS: LASIX IV SCH (12:45)
[2016-09-09] MEDS: XARELTO PO SCH (16:54)
[2016-09-09] MEDS: VANCOMYCIN 2 GM in NS 500 ML IV SCH (17:00)
--- NOTE | 2016-09-09 17:06 | PROGRESS NOTE ---
DATE: 09/09/2016 SUBJECTIVE: This is a 75-year-old, history of hypertension, hyperlipidemia and atrial fibrillation underwent recent prostatectomy about a week ago. Went to the emergency department complaining of shortness of breath for the past several days. States that he was coughing. Had some chills. Seen in the emergency room here. Had imaging done, which did show that he had left lower lobe infiltrate due to his presenting symptoms. We felt he needed hospitalization for further management. During his initial evaluation in the ER, he was hypotensive. He was given IV fluids. His blood pressure seemed somewhat improved. At the time of examination by the admitting physician, he had denied having any headache, nausea, vomiting, diarrhea, chest pain, hemoptysis, melena, weight changes. Did complain of shortness of breath, not feeling well. PAST MEDICAL HISTORY: Includes hypertension, hyperlipidemia and atrial fibrillation. So he is admitted with pneumonia. Suspected sepsis, hypertension, atrial fibrillation, probable congestive heart failure and chronic kidney disease. PHYSICAL EXAMINATION: Vital Signs: Temperature 97.5, pulse 77, respirations 20, blood pressure 146/97. Eyes: Pupils are equal, round. Lungs: Are clear in all lung suero. Cardiovascular: Regular rhythm and rate without murmur or S3. Abdomen: Soft. Skin: Warm and dry. : Urine output was 840 mL. LAB: White count 15,850, hematocrit 36, platelet count 372,000. Chemistry: Sodium 144, potassium 3.5, chloride 99, bicarb 36, BUN 25, creatinine 0.8. ASSESSMENT AND PLAN: 1. Pneumonia. Currently on vancomycin day 5, cefepime day [address] Simon. 2. Pneumonia with volume overload recently, and continue the Lasix. 3. Atrial fibrillation. He is on oral Cardizem. 4. Hypertension, which is improving. 5. Continue to encourage diet. His abdomen remains distended still some work of breathing. Dr. Barker is following a chest x-ray on 09/08/2016, yesterday. Get PICC line placement. Looking through orders: On Xarelto 20 mg a day. Lasix 40 mg a day. Methylprednisone 40 mg IV q.12. Tessalon Perles 100 mg p.o. t.i.d., Cardizem CD 180 mg daily. Cefepime 2 g q.8 hours, vancomycin 2 g to 24 hours, Protonix 40 mg IV q.24 hours. Pravachol 80 mg at bedtime. Aspirin 81 mg a day. Aricept 10 mg at bedtime. Pravastatin 80 mg a day. Continue present regimen.
--- NOTE | 2016-09-09 17:30 | PROGRESS NOTE ---
DATE: 09/09/2016 PRESENT ILLNESS: The patient has been treated earlier for pneumonia and E. coli UTI, both of which have cleared. The patient had a fairly high leukocytosis. This is coming down. The leukocytosis may be secondary to the prior pneumonia and urinary tract infection. MEDICATION: This is day 4 of treatment with cefepime and vancomycin. PHYSICAL EXAMINATION: Vital Signs: Temperature is 97.5 degrees, pulse 77, respirations 20, blood pressure 146/97. General: This is a fairly healthy-appearing, elderly male. He is in no acute distress. Lungs: Clear to auscultation. Cardiovascular: Regular heart rate. Abdomen: Was slightly distended. It was soft, and it was not tender. Neurologic: Patient is alert. He can move his extremities. There is no tremor. LAB AND X-RAY: CBC today showed the white count is down 15,850, hemoglobin 11, platelet count 372,000. Creatinine 0.8. GFR is greater than 60. Blood and urine cultures are sterile. Chest x- ray shows clear lung suero. ASSESSMENT AND PLAN: The patient earlier did have a pneumonia and a urinary tract infection. She does have leukocytosis which is improving. I plan to continue her current antibiotics. COMORBIDITIES: Include the fact she is elderly, she has gastroesophageal reflux disease as well as diabetes mellitus. [facility]
[2016-09-09] MEDS: ARICEPT PO SCH (21:51)
[2016-09-09] MEDS: PRAVACHOL PO SCH (21:51)
[2016-09-10] MEDS: DUONEB (A & A) INH SCH ×6 (04:25→23:23)
[2016-09-10] MEDS: MUCOMYST 20% INH SCH ×2 (07:50→19:25)
[2016-09-10] MEDS: MAXIPIME 2 GM/NS 100 ML IV SCH ×2 (09:00→15:30)
[2016-09-10] MEDS: ASPIRIN PO SCH (09:13)
[2016-09-10] MEDS: TESSALON PO SCH ×3 (09:13→21:09)
[2016-09-10] MEDS: SOLU-MEDROL IV SCH ×2 (09:17→21:10)
[2016-09-10] MEDS: LASIX PO SCH (09:17)
[2016-09-10] MEDS: COREG PO SCH ×2 (09:17→21:10)
[2016-09-10] MEDS: CARDIZEM CD PO SCH (09:18)
[2016-09-10] MEDS: PROTONIX IV SCH (13:41)
[2016-09-10] MEDS: SODIUM CHLORIDE 0.9% INJ SCH (13:41)
--- NOTE | 2016-09-10 16:30 | PROGRESS NOTE ---
DATE: 09/10/2016 SUBJECTIVE: Mr. Thurston is sitting up in a chair. He says he is feeling better and feels like he is getting close to go home. This has been a prolonged hospital stay. PHYSICAL EXAMINATION: Vital Signs: Temperature 98.9 degrees, pulse 77, respirations 21, blood pressure 100/73. HEENT: Pupils are equal, round, CVP less than 6 cm. Lungs: Are clear anterior, lateral, posterior. Cardiovascular: Regular rate without murmur or S3. Abdomen: Soft. Skin: Warm and dry. : Urine output, he has had over 2 L last 24 hours. LABORATORY: Reviewed lab from yesterday, hematocrit stable at 36. Chemistries looked good. Creatinine 0.8. ASSESSMENT AND PLAN: 1. He had been treated earlier for pneumonia, Escherichia coli urinary tract infection, both of which have cleared. The patient fairly high leukocytosis is coming down and leukocytosis suspected to be secondary to prior pneumonia and urinary tract infection. This is the 4th day of treatment for cefepime and vancomycin. 2. Pneumonia with volume overload. This is improved with the Lasix. So pulmonary venous hypertension improved Lasix. 3. Atrial fibrillation, he is on Cardizem. Rate controlled. 4. Hypertension. Blood pressure under good control. 5. Encouraged p.o. intake. Doing pretty well. I have reviewed his orders. I do not see any changes at this point. I think is reasonable to try and aim to discharge him on Thursday morning. I think his plan is to go home. He is on Xarelto 20 mg daily, Lasix 40 mg p.o. daily, methylprednisone 40 mg q.12, Tessalon Perles 100 mg t.i.d., Cardizem CD 180 mg a day, vancomycin 2 g daily, cefepime 2 g q.8 hours, pantoprazole 40 mg IV q.24 hours, Coreg 6.25 mg b.i.d., Pravachol 80 mg at bedtime, aspirin 81 mg a day, Aricept 10 mg at bedtime, hydrocodone 7.5 t.i.d. p.r.n., oxybutynin 5 mg p.o. t.i.d. p.r.n.
--- NOTE | 2016-09-10 16:37 | PROGRESS NOTE ---
DATE: 09/10/2016 Mr. Thurston continues to have regular bowel movements and he is tolerating his diet. His abdomen is soft for him. He has no abdominal pain. His breathing seems to be improving and clinically I think he is slowly improving. All his incision sites from his recent prostatectomy are healing without infection.
[2016-09-10] MEDS: VANCOMYCIN 2 GM in NS 500 ML IV SCH (17:28)
[2016-09-10] MEDS: XARELTO PO SCH (17:28)
--- NOTE | 2016-09-10 17:44 | PROGRESS NOTE ---
DATE: 09/10/2016 PRESENT ILLNESS: Patient previously had been treated for pneumonia and E. coli UTI, both of which have cleared. The patient then developed a leukocytosis. MEDICATIONS: This is day 5 of treatment with vancomycin and cefepime. PHYSICAL EXAMINATION: Vital signs: Temperature is 98.9 degrees, pulse 77, respirations 21, blood pressure 100/73. General: Patient looks fairly healthy. He is obese but says he is feeling better. He is an obese, elderly male, who is in no acute distress. Lungs: Clear to auscultation. Cardiovascular: Regular heart rate. Abdomen: Soft and nontender. LAB AND X-RAY STUDIES: No new lab today and no new x-ray today. COMORBIDITY: Includes the fact that the patient is elderly. He has gastroesophageal reflux disease and diabetes mellitus.
[2016-09-10] MEDS: ARICEPT PO SCH (21:09)
[2016-09-10] MEDS: PRAVACHOL PO SCH (21:10)
[2016-09-11] MEDS: MAXIPIME 2 GM/NS 100 ML IV SCH ×3 (00:06→16:40)
[2016-09-11] MEDS: DUONEB (A & A) INH SCH ×6 (03:25→23:35)
[2016-09-11] MEDS: MUCOMYST 20% INH SCH ×2 (09:03→19:48)
[2016-09-11] MEDS: LASIX PO SCH (09:35)
[2016-09-11] MEDS: TESSALON PO SCH ×3 (09:35→20:41)
[2016-09-11] MEDS: SOLU-MEDROL IV SCH ×2 (09:37→20:42)
[2016-09-11] MEDS: ASPIRIN PO SCH (09:37)
[2016-09-11] MEDS: COREG PO SCH ×2 (09:37→20:41)
[2016-09-11] MEDS: CARDIZEM CD PO SCH (09:37)
--- NOTE | 2016-09-11 11:54 | PROGRESS NOTE ---
DATE: 09/11/2016 SUBJECTIVE: Mr. Thurston is sitting up in bed. He states that he is feeling better. OBJECTIVE: Vital Signs: Temperature is 98.1 degrees, heart rate 93, respirations 19, blood pressure 130/82, and O2 is 97% on 3L nasal cannula. General: Mr. Thurston is a pleasant 75-year- old male who is sitting up in bed. Cardiovascular: S1 and S2 appreciated. No murmurs, gallops, or rubs noted. Abdomen: Obese, soft, nontender, nondistended. Positive bowel sounds x4 quadrants. Pulmonary: Bilateral breath sounds are clear. Skin: Warm, dry, and intact. Neurologic: Patient is alert and oriented x4. Follows commands. Moves all extremities. LABORATORY DATA: No new laboratory data. ASSESSMENT AND PLAN: 1. The patient has been treated earlier for pneumonia and Escherichia coli infection. Both have been cleared. Patient did have fairly high leukocytosis, which is trending down, suspected to be secondary to prior pneumonia and urinary tract infection. The patient is on the 5th day of treatment with vancomycin and cefepime. 2. Fluid volume overload, improving with Lasix. 3. Atrial fibrillation, on Cardizem, rate controlled. 4. Hypertension. Continue medications. 5. Encourage p.o. intake. 6. Status post recent prostatectomy per Dr. Barker. Incision sites are healing without infection. Patient continues to have regular bowel movements and is tolerating his diet. Abdomen remains soft. 7. Disposition: The patient will be here through the weekend. I have put in a consult with [employer] Manager for home health and physical therapy as well as a home O2 evaluation. Further recommendations to follow physician evaluation. Dictated by JENELLE Newton for Aman Jaquez MD
[2016-09-11] MEDS: PROTONIX IV SCH (13:30)
[2016-09-11] MEDS: SODIUM CHLORIDE 0.9% INJ SCH (13:30)
[2016-09-11] MEDS: XARELTO PO SCH (17:30)
--- NOTE | 2016-09-11 17:31 | PROGRESS NOTE ---
DATE: 09/11/2016 PRESENT ILLNESS: The patient is status post surgery performed by Dr. Barker for removal of the prostate. Patient had pneumonia and an E. coli UTI, both of which appear to have cleared. The patient has a leukocytosis, it is getting better at this time. MEDICATIONS: This is day 6 of treatment with a combination of vancomycin and cefepime. PHYSICAL EXAMINATION: Vital Signs: Temperature is 97.6 degrees, pulse 85, respirations 22, blood pressure 106/79. Generally: This is an obese, but otherwise fairly healthy-appearing, elderly male. He is in no acute distress. Lungs: Clear to auscultation. Cardiovascular: Heart rate is irregular. Abdomen: Soft and nontender. The incision sites have all healed well, they are not erythematous or draining. LABORATORY: Dated today, shows a CBC with a white count of 15,850, hemoglobin 11, and platelet count 372,000. Patient's creatinine is 0.8. Vancomycin level was 11.5. ASSESSMENT AND PLAN: The patient continues to have a leukocytosis. Clinically I do not find any evidence of infections, specifically, any related to the surgery. It should be noted that the patient is on steroids which could increase his white count. However the patient did have a leukocytosis even before being put on steroids. For now, I would like to continue with the antibiotics and repeat his lab work. COMORBIDITIES: Include he was elderly, he had surgery to remove his prostate, he has gastroesophageal reflux disease and diabetes mellitus.
[2016-09-11] MEDS: VANCOMYCIN 2 GM in NS 500 ML IV SCH (18:00)
[2016-09-11] MEDS ORDERED: VANCOMYCIN 2.25 GM in NS 500 ML IV SCH (20:00)
[2016-09-11] MEDS: PRAVACHOL PO SCH (20:41)
[2016-09-11] MEDS: ARICEPT PO SCH (20:41)
[2016-09-12] MEDS: MAXIPIME 2 GM/NS 100 ML IV SCH ×2 (00:14→08:44)
[2016-09-12] MEDS: DUONEB (A & A) INH SCH ×3 (03:40→11:30)
[2016-09-12 07:04] LABS: HEMOGLOBIN 10.6 g/dL (14.0-18.0); MCH 24.8 PG (27-31); MCHC 29.4 g/dL (33-37); MCV 84.3 FL (81-99); MPV 9.6 FL (7.4-10.4); RBC 4.27 XMIL (4.7-6.1)
[2016-09-12 07:34] LABS: AGAP 7; BUN 23 mg/dL (8-22); CHLORIDE 97 mmol/L (98-107); COSMO 286; POTASSIUM 3.7 mmol/L (3.5-5.1); SODIUM 141 mmol/L (136-145); TCO2 37 mmol/L (25-35)
[2016-09-12] MEDS: MUCOMYST 20% INH SCH (08:33)
[2016-09-12] MEDS: TESSALON PO SCH (08:44)
[2016-09-12] MEDS: SOLU-MEDROL IV SCH (08:44)
[2016-09-12] MEDS: ASPIRIN PO SCH (08:45)
[2016-09-12] MEDS: COREG PO SCH (08:45)
[2016-09-12] MEDS: LASIX PO SCH (08:45)
[2016-09-12] MEDS: CARDIZEM CD PO SCH (08:45)
[2016-09-12] MEDS: SODIUM CHLORIDE 0.9% INJ SCH (12:13)
[2016-09-12 14:10] VITALS: BP 113/66
--- NOTE | 2016-09-12 16:39 | PROGRESS NOTE ---
DATE: 09/12/2016 SUBJECTIVE: The patient is being discharged today. He will have follow up with his primary care physician, Dr. Afia Ovalles. The patient's white count is decreasing and he has been afebrile. I think he is over his infection and his white count should continue to fall. Dr. Ovalles will be monitoring the patient's white count. I am available to see the patient on a p.r.n. basis. I do not think he needs any further antibiotics.
--- NOTE | 2016-09-12 17:07 | DISCHARGE SUMMARY ---
ADMISSION DATE: 08/29/2016 DISCHARGE DATE: 09/12/2016 HOSPITAL COURSE: This is a 75-year-old, history of hypertension, hyperlipidemia and atrial fibrillation. Underwent recent prostatectomy about a week before this admission and presented to the emergency department complaining of shortness of breath that has been lasting several days. He was coughing and had some chills. He was seen in the emergency room, had imaging done which did show the left lower lobe infiltrate. Due to his presenting symptoms he would need hospitalization so he was admitted and found to be hypotensive and given IV fluids. He seemed to improve somewhat. He was given IV antibiotics. Dr. Mederos was consulted on 08/29/2016 because he had atrial fibrillation with rapid rate. He was anticoagulated with Xarelto. They had decreased his Xarelto. He has had some bleeding problems with this in the past. His abdominal and pelvic CT done 08/29/2016, distended proximal small bowel and apparent transition to normal caliber in the right lower quadrant. Possibly early or partial small bowel obstruction. Abdomen essentially showed some improvement. He had NG tube placed. Chest x-ray on 08/30/2016 with some mild left basilar atelectasis. Head CT done 08/30/2016. 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 Abdominal film on 09/02/2016 showed improvement, gaseous distention of small bowel. Dr. Barker was following. The patient showed steady improvement. He was held on his blood thinners. Xarelto was held. He has had Coumadin before. I think he has had Xarelto and I think he has had another anticoagulant. Each of them have caused trouble with bleeding, either gross hematuria or GI bleeding. He was treated for pneumonia here. E. coli urinary tract infection. Both have resolved. He seems to be improving as far as his strength and p.o. intake. He remains in atrial fibrillation. Rate is controlled. DISPOSITION: It was felt he could go home on 09/12/2016. DISCHARGE INSTRUCTIONS: We are going to stopped his anticoagulant. He and I discussed this. He has had numerous complications from it and he feels like the risk is too high. So we will stop the Xarelto. We can stop his antibiotics. He is on Pravachol 80 mg at bedtime. He will be on Medrol dose pack. He is on his Coreg 6.25 mg b.i.d., and he is on Lasix 40 mg a day. Diltiazem CD 180 mg daily. FOLLOWUP: Follow up with primary care and Cardiology. Get home health to help with physical therapy.
== END 2016-09-12 16:38 | disposition home health service (06) | DRG 393 ==
LOC: ED 21:41 → EDIPHOLD 08-29 01:26 → ICU 08-29 12:52 → 4N 08-31 15:09 → 3S 09-02 15:28 → 3N 09-08 15:08
PROVIDERS: ATTEND Emergency Medicine
PROC: 0D9670Z Drainage of Stomach with Drainage Device, Via Natural or Artificial Opening (ICD-10-PCS; principal; 2016-08-29)
PROC: 02HV33Z Insertion of Infusion Device into Superior Vena Cava, Percutaneous Approach (ICD-10-PCS; 2016-09-08)
DX: K91.89 Other postprocedural complications and disorders of digestive system (principal); J18.9 Pneumonia, unspecified organism; N17.9 Acute kidney failure, unspecified; I13.0 Hypertensive heart and chronic kidney disease with heart failure and stage 1 through stage 4 chronic kidney disease, or unspecified chronic kidney disease; I27.2 Other secondary pulmonary hypertension; J44.0 Chronic obstructive pulmonary disease with (acute) lower respiratory infection; I50.9 Heart failure, unspecified; F03.90 Unspecified dementia, unspecified severity, without behavioral disturbance, psychotic disturbance, mood disturbance, and anxiety; F05 Delirium due to known physiological condition; E83.39 Other disorders of phosphorus metabolism; K56.7 Ileus, unspecified; N39.0 Urinary tract infection, site not specified; J98.11 Atelectasis; J44.1 Chronic obstructive pulmonary disease with (acute) exacerbation; I48.2 Chronic atrial fibrillation; E86.0 Dehydration; E66.01 Morbid (severe) obesity due to excess calories; B96.20 Unspecified Escherichia coli [E. coli] as the cause of diseases classified elsewhere; E78.5 Hyperlipidemia, unspecified; Z96.653 Presence of artificial knee joint, bilateral; R79.1 Abnormal coagulation profile; N18.9 Chronic kidney disease, unspecified; I73.9 Peripheral vascular disease, unspecified; K21.9 Gastro-esophageal reflux disease without esophagitis; Z16.23 Resistance to quinolones and fluoroquinolones; E87.6 Hypokalemia; Z68.37 Body mass index [BMI] 37.0-37.9, adult; Z86.73 Personal history of transient ischemic attack (TIA), and cerebral infarction without residual deficits; Z90.49 Acquired absence of other specified parts of digestive tract; Z79.899 Other long term (current) drug therapy; Z79.01 Long term (current) use of anticoagulants; Z79.82 Long term (current) use of aspirin; Z85.038 Personal history of other malignant neoplasm of large intestine; Z80.0 Family history of malignant neoplasm of digestive organs; Z85.46 Personal history of malignant neoplasm of prostate; Z80.3 Family history of malignant neoplasm of breast; Z83.3 Family history of diabetes mellitus; Z80.1 Family history of malignant neoplasm of trachea, bronchus and lung
CPT/HCPCS: 36415; 36569; 51702; 70450; 71010; 71020; 74000; 74020; 74022; 74176; 80048; 80053; 80069; 80202; 81001; 82550; 82570; 83605; 83735; 83880; 84156; 84300; 84484; 85025; 85027; 85379; 85610; 85730; 87040; 87077; 87088; 87186; 93005; 93010; 93306; 94640; 94760; 94761; 94799; 96365; 96366; 96368; C9113; J0692; J0696; J1160; J1650; J1940; J2185; J2543; J2920; J3370; J3480; J7030; J7040; J7050; 97530-GP; S0164